=== PATIENT | female | born 1940 | race Caucasian/White ===

== ENCOUNTER 2024-01-20 09:00 | Outpatient (REF) | payer MEDICARE, SELFPAY ==
--- NOTE | ~2024-01-20 | XR_ITS ---
EXAMINATION: XR KNEE, LEFT CLINICAL INFORMATION: M25.562 - Pain in left knee COMPARISON: None available. TECHNIQUE: Three views of the left knee. FINDINGS: There is mild diffuse osteopenia. There is no fracture, dislocation, or suspicious focal bone lesion. There is a bone island in the proximal fibula. There is moderate to severe joint space loss lateral compartment, and moderate joint space loss medial and patellofemoral compartments, with moderate marginal osteophytic spurring. There is spurring of the tibial spines. Medial compartment joint space narrowing results in mild valgus angulation of the joint. There is a small suprapatellar joint effusion. There are vascular calcifications in the soft tissues. XR/XR knee LT 3V IMPRESSION: 1. Osteopenia. 2. No acute findings of the left knee. 3. Moderate to severe lateral compartment, and moderate medial and patellofemoral compartment osteoarthrosis. There is mild resultant valgus angulation of the joint. 4. Small joint effusion. Electronically signed by: Elvis Chowdhury MD 03/28/2024 01:10 PM DEYSI SAUER
== END 2024-01-20 09:01 | disposition home or self-care (01) ==
LOC: HO.HOSX 09:00
PROVIDERS: PCP Internal Medicine; Visit Provider Orthopaedic Surgery
DX: M25.562 Pain in left knee (principal); M17.12 Unilateral primary osteoarthritis, left knee
CPT/HCPCS: 73562; 99202

== ENCOUNTER → 2024-01-20 09:12 | Outpatient (BNV) | payer MEDICARE, SELFPAY | PROVIDERS: PCP Internal Medicine; Visit Provider Radiology Diagnostic Radiology | DX: M17.12 Unilateral primary osteoarthritis, left knee (principal) | CPT/HCPCS: 73562 ==

== ENCOUNTER 2024-01-20 09:53 | Outpatient (AMB) | payer MEDICARE, SELFPAY ==
--- NOTE | 2024-01-20 10:03 | A.OFFVIS_ITS ---
Vital Signs 01/20/24 10:08 Height 5 ft 5.5 in Weight 150 lb BMI 24.6 Intake Visit Reasons: [employer] - LT knee pain Intake Note: Leighann is a 83 year old female who presents with complaints of progressively worsening left knee pain. The patient describes her pain as sharp and severe in nature, 02/03. Her pain has gotten worse over the last few years in spite of continued non operative treatments. She has done physical therapy which aggravated her pain. She has failed the last 6 weeks of conservative treatment. She has tried Tylenol and anti-inflammatory medicines which gave her minimal relief. She has also had multiple injections given into her left knee including ?stem cell injections?. The most recent injection gave her minimal relief. The patient has difficulty walking even short distances because of her pain. At this point her left knee pain is interfering with her activities of daily living and her ability to sleep well through the night. Allergies No Known Allergies Allergy (Verified 01/20/24 10:09) Physical Exam Vital Signs: BMI result Body Mass Index 24.6 Const Other: Well-nourished well-developed very friendly female awake alert and oriented x3 in no acute distress Extrem Other: Bilateral lower extremity examination shows good capillary refill, no skin lesions noted, normal sensation light touch Left knee examination shows a minimal effusion, palpable crepitus with range motion, pain with range of motion, range of motion from -3 degrees to 115 degrees, no instability Results Reviewed Results Reviewed: X-rays of the patient's left knee show end-stage degenerative joint disease with grade 4 zdvo-pv-yles arthritis, subchondral sclerosis, osteophyte formation, no acute bony abnormalities Assessment & Plan Assessment & Plan (1) Arthritis of left knee: Code(s): M17.12 - Unilateral primary osteoarthritis, left knee Category: Medical Plan Ms. Smyth presents with progressively worsening left knee pain due to end-stage degenerative joint disease. I had a lengthy discussion with the patient regarding the treatment options. At this point she has failed continued non ope rative treatments. The risks and benefits of left total knee replacement surgery were discussed at length with the patient. The patient wishes to proceed with surgery. She will be scheduled for next available date. I will see her back 1 week prior to her surgery to answer any final questions that she might have. Feel free to call me at any time should questions regarding her orthopedic management arise. Thank you very much for asking me to see this very friendly patient. I spent 22 minutes in reviewing the patient's records and imaging studies, seeing the patient and documenting in the medical record. Orders: Orders XR knee LT 3V 01/20/24 M25.562 - Pain in left knee Coding Level of Care Code New Pt Level 3 (91730) Complex EM visit Add On G2211 Diagnoses Arthritis of left knee M17.12
[2024-01-20 10:08] VITALS: BMI 24.6
== END 2024-01-20 10:24 | disposition home or self-care (01) ==
LOC: HO.HOS 09:53
PROVIDERS: PCP Internal Medicine; Visit Provider Orthopaedic Surgery
DX: M17.12 Unilateral primary osteoarthritis, left knee (principal)
CPT/HCPCS: 99204; G2211

== ENCOUNTER → 2024-04-05 10:55 | Outpatient (BNVA) | payer MEDICARE, SELFPAY | PROVIDERS: PCP Internal Medicine | DX: Z01.818 Encounter for other preprocedural examination (principal) ==

== ENCOUNTER 2024-05-05 08:10 | Outpatient (AMB) | payer MEDICARE, SELFPAY ==
[2024-05-05 08:12] VITALS: BMI 24.6
--- NOTE | 2024-05-05 08:12 | MHC.OFFVIS ---
Vital Signs 05/05/24 08:12 Height 5 ft 5.5 in Weight 150 lb BMI 24.6 Intake Visit Reasons: Left knee pain Intake Note: Leighann is a 83 year old female who presents with complaints of progressively worsening left knee pain. The patient describes her pain as sharp and severe in nature, 02/03. Her pain has gotten worse over the last few years in spite of continued non operative treatments. She has done physical therapy which aggravated her pain. She has failed the last 6 weeks of conservative treatment. She has tried Tylenol and anti-inflammatory medicines which gave her minimal relief. She has also had multiple injections given into her left knee including ?stem cell injections?. The most recent injection gave her minimal relief. The patient has difficulty walking even short distances because of her pain. At this point her left knee pain is interfering with her activities of daily living and her ability to sleep well through the night. Allergies Influenza Virus Vaccines Allergy (Severe, Verified 05/05/24 08:12) severe flu symptoms Medication List - Last Reconciled 05/05/24 by Lawrence Menon MD cholecalciferol (vitamin D3) (Vitamin D3) 30 mcg PO QPM fish,bora,flax oils-om3,6,9no1 1,200 mg ([place] 3-6-9) 1 cap PO QPM glucosamine-chondroitin 250-200 mg (Osteo Bi-Flex) 2 tabs PO QAM Lactobacillus acidophilus (Acidophilus capsule) 20,000 mmu cells PO QAM magnesium oxide 400 mg PO QPM naproxen sodium (Aleve) 220 mg PO BID PRN omeprazole 20 mg PO QAM simvastatin 20 mg PO QPM tramadol 50 mg PO Q12H PRN vitamin B complex 1 tab PO DAILY walker Folding front wheeled walker [facility] Medical History (Updated 05/05/24 @ 07:20 by Lawrence Menon MD) Arthritis 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), 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) Diverticulosis Varicose vein of leg GERD (gastroesophageal reflux disease) Dyslipidemia Depression Surgical History (Updated 04/11/24 @ 09:48 by Suri Putnam RN) Hx of bilateral cataract extraction History of arthroplasty of right shoulder Hx of meniscectomy of right knee Hx of prior ablation treatment History of right salpingo-oophorectomy Social History (Updated 04/12/24 @ 10:21 by Suri Putnam RN) Are you a primary career development director to a significant other at home: No Do you presently have visiting nurse or other home services: No Comment: aware of trip hazard and will remove Patient Tobacco Use Status: Never used Tobacco Physical Exam Vital Signs: BMI result Body Mass Index 24.6 Const Other: Well-nourished well-developed very friendly female awake alert and oriented x3 in no acute distress Extrem Other: Bilateral lower extremity examination shows good capillary refill, no skin lesions noted, normal sensation light touch Left knee examination shows a minimal effusion, palpable crepitus with range of motion, pain with range of motion, range of motion from -3 degrees to 115 degrees, no instability Results Reviewed Results Reviewed: X-rays of the patient's left knee show end-stage degenerative joint disease with grade 4 vkiz-al-zlsv arthritis, subchondral sclerosis, osteophyte formation, no acute bony abnormalities Assessment & Plan Assessment & Plan (1) Left knee pain: Code(s): M25.562 - Pain in left knee Category: Medical (2) Arthritis of left knee: Code(s): M17.12 - Unilateral primary osteoarthritis, left knee Category: Medical Plan Ms. Smyth presents with progressively worsening left knee pain due to end-stage degenerative joint disease. I had a lengthy discussion with the patient regarding the treatment options. At this point she has failed continued non operative treatments. The risks and benefits of left total knee replacement surgery were discussed at length with the patient. The patient wishes to proceed with surgery. director agricultural services will be consulted following her surgery for home physical therapy and nursing. The patient will follow-up as instructed. Feel free to call me at any time should questions regarding her orthopedic management arise. I spent 20 minutes in reviewing the patient's records and imaging studies, seeing the patient and documenting in the medical record. Orders: Orders Type and Screen Today M17.12 - Unilateral primary osteoarthritis, left knee, Z01.818 - Encounter for other preprocedural examination Coding Level of Care Code Est Pt Level 3 (83141) Complex EM visit Add On G2211 Diagnoses Left knee pain M25.562 Arthritis of left knee M17.12
--- OUTSIDE RECORDS SUMMARY | 2024-05-05 08:15 | XMS_ITS | Continuity of Care Document ---
Author Organization [facility] Address [address] [place] [address]- Care Team Providers Care Women'S Garment Fitter Name Role Phone Zack GILLESPIE, Wendi Gaines Primary Care Physician Encounter [facility] [place] [facility] Date(s): 03/14/24 - 04/13/24 [facility] [address] [place] [address]- Attending Physician: Rick Weston Admitting Physician: Rick Weston Referring Physician: AdmtrRick Encounter Type: Triage Allergies, Adverse Reactions, Alerts No Known Allergies Medications Acidophilus Probiotic Blend oral capsule By Mouth, Daily, 0 Refills, Maintenance, 09/10/20 10:57:00 AM EDT, Partial fill upon patient requestif the prescription is for a schedule II opioid drug. Start Date: 09/10/20 Status: Ordered Repeat number: 1 Aleve Back and Muscle Pain 220 mg oral tablet 1 tablet = 220 mg, By Mouth, Every 12 hours, PRN as needed for pain, # 40 tablet, 0 Refills, Maintenance, 03/14/24 5:08:00 PM EST, Tablet, Partial fill upon patient request if the prescription is fora schedule II opioid drug. Start Date: 03/14/24 Status: Ordered Quantity: 40.0 Unit: tablet Repeat number: 1 Compression Stockings See Instructions, # 2 each, Refills 3, Tot. Refills 3, Maintenance, surgical, panty hose length 20-30 mm Hg, 10/25/20 1:59:00 PM EDT, Supply Start Date: 10/25/20 Status: Ordered Quantity: 2.0 Unit: each Repeat number: 4 Indication: Venous insufficiency (chronic) (peripheral) Compression Stockings See Instructions, # 2 pair, Refills 3, Tot. Refills 3, Maintenance, surgical, knee length 20-30 mm Hg, 03/22/18 5:24:48 PM EST, Compound Start Date: 03/22/18 Status: Ordered Quantity: 2.0 Unit: pair Repeat number: 4 Multivitamin Tablet By Mouth, Daily, 0 Refills, Maintenance, 09/09/11 1:04:30 PM EDT Start Date: 09/09/11 Status: Ordered Repeat number: 1 Omeprazole = 20 mg, By Mouth, Daily, 0 Refills, Maintenance, 03/22/18 4:50:47 PM EST Start Date: 03/22/18 Status: Ordered Repeat number: 1 Osteo Bi-Flex 0 Refills, Maintenance, 03/14/24 5:09:00 PM EST, Partial fill upon patient request if the prescription is for a schedule II opioid drug. Start Date: 03/14/24 Status: Ordered Repeat number: 1 Simvastatin = 20 mg, By Mouth, Daily at bedtime, 0 Refills, Maintenance, 09/09/11 1:03:56 PM EDT Start Date: 09/09/11 Status: Ordered Repeat number: 1 Vit B Complex/Vit C Capsule By Mouth, Daily, Refills 0, Maintenance, 09/10/20 10:57:00 AM EDT, Partial fill upon patient requestif the prescription is for a schedule II opioid drug. Start Date: 09/10/20 Status: Ordered Repeat number: 1 Vitamin C 500 mg oral tablet 1 tablet = 500 mg, By Mouth, Daily, # 30 tablet, 0 Refills, Maintenance, 09/10/20 10:57:00 AM EDT, Tablet, Partial fill upon patient request if the prescription is for a schedule II opioid drug. Start Date: 09/10/20 Status: Ordered Quantity: 30.0 Unit: tablet Repeat number: 1 Problem List Condition Confirmation Course Effective Dates Status Health St atus Informant Varicose vein Confirmed Active Social History Social History Type Response Smoking Status Never (less than 100 in lifetime) entered on: 03/22/18 Sex Sex Representation Female (finding) Patient Care team information Care Team Personnel Name: Wendi Dixon MD Position: [facility] Outreach Member Role: PCP Address: [address] [place] [address] Telecom: Care Team Related Persons Name: ABIMAEL HANNON Insurance Providers Guarantor name: SHIREEN [facility] Information #: 1 Payer: [facility] [employer] Member Number: NA Policy Number: NA Group Number: NA
--- OUTSIDE RECORDS SUMMARY | 2024-05-05 08:15 | XMS_ITS | Continuity of Care Document ---
Author Organization [facility] Address [address] [place] [address]- Care Team Providers Care Chemical Recovery Operator Name Role Phone Zack GILLESPIE, Wendi Gaines Primary Care Physician [id number] [address] [place], [place] [address] Attending Physician: Mabel Puente NP Admitting Physician: Mabel Puente NP Referring Physician: Wendi Dixon MD Encounter Type: Pre Office Visit Allergies, Adverse Reactions, Alerts No Known Allergies [...] Team Personnel Name: Wendi Dixon MD Position: S Outreach Member Role: PCP Address: [address] [place] [address] Telecom: Care Team Related Persons Name: ABIMAEL HANNON Insurance Providers Guarantor name: SHIREEN [facility] [employer] [facility] Information #: 1 Payer: [facility] Member Number: [id number] Policy Number: NA Group Number: [id number] Health Plan Information #: 2 Payer: [facility] [employer] Member Number: [id number] Policy Number: NA Group Number: [id number]
== END 2024-05-05 08:46 | disposition home or self-care (01) ==
PROVIDERS: PCP Internal Medicine; Visit Provider Orthopaedic Surgery
DX: M25.562 Pain in left knee (principal); M17.12 Unilateral primary osteoarthritis, left knee
CPT/HCPCS: 99213; G2211

== ENCOUNTER → 2024-05-05 08:10 | Outpatient (BNVA) | payer MEDICARE, SELFPAY | PROVIDERS: PCP Internal Medicine; Visit Provider Orthopaedic Surgery | DX: Z01.818 Encounter for other preprocedural examination (principal); M17.12 Unilateral primary osteoarthritis, left knee | CPT/HCPCS: 99212 ==

== ENCOUNTER 2024-05-09 07:21 | Day surgery (SDC) | payer MEDICARE, BC, SELFPAY ==
[2024-04-12 10:27] VITALS: BP 145/78; RESP 18; O2SAT 97; BMI 27.9
--- NOTE | 2024-04-12 10:49 | HO.ANESPROP2 ---
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) Diverticulosis Varicose vein of leg GERD (gastroesophageal reflux disease) Dyslipidemia Depression Surgical History Surgical History Hx of bilateral cataract extraction History of arthroplasty of right shoulder Hx of meniscectomy of right knee Hx of prior ablation treatment History of right salpingo-oophorectomy Social History Social History Are you a primary health care manager to a significant other at home: No Do you presently have visiting nurse or other home services: No Comment: aware of trip hazard and will remove Patient Tobacco Use Status: Never used Tobacco Use of substances other than those prescribed or required for medical reasons: No Have you been hit, kicked, punched, or otherwise hurt by someone within the past year? If so, by whom?: No Spiritual Healthcare Practices: none Congregation Healthcare Practices: none Cultural Healthcare Practices: none Are you DNR?: No Advance Directives Information Provided: Yes (as above noted) Advance Directives on File: No Recently lost weight without trying: No Eating poorly because of decreased appetite: No Nutrition Risks: Surgical patient >75years FDLMP: n/a Poor oral hygiene: No Meds Allergies Allergy/AdvReac Type Severity Reaction Status Date / Time Influenza Virus Vaccines Allergy Severe severe flu Verified 05/09/24 08:04 symptoms Home Medications ?Medication ?Instructions ?Recorded ?Confirmed ?Last Taken ?Type omeprazole 20 mg capsule,delayed 20 mg PO QAM 04/05/24 05/05/24 05/09/24 History release simvastatin 20 mg tablet 20 mg PO QPM 04/05/24 05/05/24 Unknown History Lactobacillus acidophilus 20,000 mmu cells PO QAM 04/08/24 05/05/24 Unknown History (Acidophilus capsule) glucosamine-chondroitin 250 mg-200 2 tab PO QAM 04/08/24 05/05/24 Unknown History mg tablet (Osteo Bi-Flex) naproxen sodium 220 mg tablet 220 mg PO BID PRN Pain 04/08/24 05/05/24 Unknown History (Aleve) vitamin B complex 1 tab PO DAILY 04/08/24 05/05/24 Unknown History cholecalciferol (vitamin D3) 10 30 mcg PO QPM 04/12/24 05/05/24 Unknown History mcg (400 unit) capsule (Vitamin D3) fish, borage, flaxseed oils-omega 1 cap PO QPM 04/12/24 05/05/24 Unknown History 3,6,9 comb no.1 1,200 mg capsule (Bapchule 3-6-9) magnesium oxide 400 mg PO QPM 04/12/24 05/05/24 Unknown History Exam Height,Weight and Vital Signs: Height 5 ft 5.5 in Weight 77.111 kg Last Vital Signs Resp 18 04/12/24 10:27 BP 145/78 H 04/12/24 10:27 Pulse Ox 97 04/12/24 10:27 O2 Del Method Room Air 04/12/24 10:27 Pertinent Lab Results Pertinent Lab Results: Lab Results Test Name Test Result Date/Time WBC10.0 k/mm303/14/2024 10:40 EST RBC3.90 m/mm303/14/2024 10:40 EST Hgb11.8 Gm/dL03/14/2024 10:40 EST Hct36.8 %03/14/2024 10:40 EST MCV94.4 qeydigvscjz56/18/2024 10:40 EST MCH30.3 pg03/14/2024 10:40 EST MCHC32.1 Gm/dL03/14/2024 10:40 EST Platelet [place]295 k/mm303/14/2024 10:40 EST RDW-SD46.3 /18/2024 10:40 EST MPV9.5 hwkmnwubrxt05/18/2024 10:40 EST Nucleated RBC (Automated)0.0 #/100 WBC'03/14/2024 10:40 EST Abs. NRBC0.0 k/mm311 10:40 EST Abs. Neut6.8 k/mm303/14/2024 10:40 EST Abs. Lymph1.7 k/mm303/14/2024 10:40 EST Abs. Mono1.0 k/mm311 10:40 EST Abs. Eo0.3 k/mm303/14/2024 10:40 EST Abs. Baso0.1 k/mm303/14/2024 10:40 EST Neut %68.3 %03/14/2024 10:40 EST Lymph %17.2 %03/14/2024 10:40 EST [place] %9.7 %03/14/2024 10:40 EST Eos %3.4 %03/14/2024 10:40 EST Baso %0.8 %03/14/2024 10:40 EST Imm Gran0.6 %03/14/2024 10:40 EST Abs. Imm Gran0.1 k/mm303/14/2024 10:40 EST Mgavzb002 mmol/L105/14/2023 10:40 EST Potassium4.3 mmol/L105/14/2023 10:40 EST Mqvisnjr351 mmol/L105/14/2023 10:40 EST Bicarbonate Level21 mmol/L105/14/2023 10:40 EST Anion Zxp901305/14/2023 10:40 EST Glucose Level99 mg/dL03/14/2024 10:40 EST Hemoglobin A1C (Monitoring)5.7 %03/14/2024 10:40 EST BUN22 mg/dL03/14/2024 10:40 EST Creatinine-Blood0.61 mg/dL03/14/2024 10:40 EST Estimated GFR Gqxmkwoeva77 ML/MIN/1.73 M203/14/2024 10:40 EST Calcium9.2 mg/dL03/14/2024 10:40 EST Narrative Narrative: EKG 02/2024 Diagnostic ResultsVentricular Rate: 72 ?BPM Atrial Rate: 72 ?BPM P-R Interval: 158 ?ms QRS Duration: 116 ?ms Q-T Interval: 408 ?ms QTC Calculation(Bazett): 446 ?ms P [place]: 29 ?degrees R [place]: 26 ?degrees T [place]: 38 ?degrees Normal sinus rhythm Incomplete right bundle branch block Borderline ECG No previous ECGs available Confirmed by MARCUS DUFFY MD ([id number]) on 03/14/2024 11:09:12 AM?[1] Airway Mallampati Class: II TM Dist: >3cm Neck ROM: Full Loose/Missing/Broken Teeth: Yes (Right upper broken, missing) Heart: RRR Lungs: CTAB Assessment and Plan Assessment Anesthesia Assessment: Anesthesia Plan Discussed and PAT Visit Documented by User: Lexus Cooper MD 05/09/24 09:35 [facility] Past Medical History Medical History Arthritis 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), 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) Diverticulosis Varicose vein of leg GERD (gastroesophageal reflux disease) Dyslipidemia Depression Family History Family history of problems with anesthesia: No Surgical History Surgical History Hx of bilateral cataract extraction History of arthroplasty of right shoulder Hx of meniscectomy of right knee Hx of prior ablation treatment History of right salpingo-oophorectomy History of Problems with Anesthesia: No Social History Social History Are you a primary health care manager to a significant other at home: No Do you presently have visiting nurse or other home services: No Comment: aware of trip hazard and will remove Patient Tobacco Use Status: Never used Tobacco Use of substances other than those prescribed or required for medical reasons: No Have you been hit, kicked, punched, or otherwise hurt by someone within the past year? If so, by whom?: No Spiritual Healthcare Practices: none Congregation Healthcare Practices: none Cultural Healthcare Practices: none Are you DNR?: No Advance Directives Information Provided: Yes (as above noted) Advance Directives on File: No Recently lost weight without trying: No Eating poorly because of decreased appetite: No Nutrition Risks: Surgical patient >75years FDLMP: n/a Poor oral hygiene: No Meds Allergies Allergy/AdvReac Type Severity Reaction Status Date / Time Influenza Virus Vaccines Allergy Severe severe flu Verified 05/09/24 08:04 symptoms Home Medications ?Medication ?Instructions ?Recorded ?Confirmed ?Last Taken ?Type omeprazole 20 mg capsule,delayed 20 mg PO QAM 04/05/24 05/05/24 05/09/24 History release simvastatin 20 mg tablet 20 mg PO QPM 04/05/24 05/05/24 Unknown History Lactobacillus acidophilus 20,000 mmu cells PO QAM 04/08/24 05/05/24 Unknown History (Acidophilus capsule) glucosamine-chondroitin 250 mg-200 2 tab PO QAM 04/08/24 05/05/24 Unknown History mg tablet (Osteo Bi-Flex) naproxen sodium 220 mg tablet 220 mg PO BID PRN Pain 04/08/24 05/05/24 Unknown History (Aleve) vitamin B complex 1 tab PO DAILY 04/08/24 05/05/24 Unknown History cholecalciferol (vitamin D3) 10 30 mcg PO QPM 04/12/24 05/05/24 Unknown History mcg (400 unit) capsule (Vitamin D3) fish, borage, flaxseed oils-omega 1 cap PO QPM 04/12/24 05/05/24 Unknown History 3,6,9 comb no.1 1,200 mg capsule (Bapchule 3-6-9) magnesium oxide 400 mg PO QPM 04/12/24 05/05/24 Unknown History Assessment and Plan Final Anesthetic Review Family History of Problems with Anesthesia: No History of Problems with Anesthesia: No NPO: Yes ASA Class: III Final Preanesthetic Review: No Changes in Pt Med Stat, Meds/Allgs Chart Reviewed, Consent Obtained/Reviewed and Anes Risks/Benef Reviewed Patient Risk: Intermediate Procedure Risk: Intermediate Anesthetic Plan Anesthetic Plan: MAC:, Spinal, Neuraxial Block: and Regional Block Disposition: Standard PACU
[2024-04-12 13:38] LABS: MRSA Nasal PCR NEGATIVE (Negative); SA Nasal PCR NEGATIVE (Negative)
[2024-05-09] VITALS (15 sets, daily range): BP systolic 99–153; BP diastolic 41–96; PULSE 72–117; RESP 16–18; TEMP 36.2–36.7; O2SAT 95–97; BMI 27.9
[2024-05-09] MEDS: Lactated Ringers 1,000 ML 100 ML IVCONT ×2 (08:52→17:47)
--- NOTE | 2024-05-09 14:43 | P.BOP_ITS ---
Brief Operative Note Date of Service: 05/09/24 Pre-op diagnosis: Left knee degenerative joint disease Post-op diagnosis: same Procedure: Left total knee arthroplasty Implants: Alder Triathlon cemented posterior stabilized total knee arthroplasty with a femoral component size 4 left, universal tibial component size 4, tibial stem size 12 mm in diameter by 50 mm in length, polyethylene liner size 4 with 9 mm of thickness, a symmetric patellar component size 29 with 8 mm of thickness Surgeon: Lawrence Menon MD Anesthesia: spinal Was an Catheterization Laboratory Technician used for this Procedure?: No Catheterization Laboratory Technician: Flavio Young Estimated blood loss (mL): 200 Pathology: other (Bony fragments from the left femur, tibia and patella) Condition: stable Disposition: PACU
--- NOTE | 2024-05-09 14:45 | P.OP_ITS ---
Operative Note Operative Note Date of Service: 05/09/24 Narrative: After the patient was identified as Leighann Smyth and her left knee was initialed by myself the patient was brought to the holding area where a left leg nerve block was performed by the anesthesiologist in routine fashion. The patient was then brought to the operating room where conscious sedation and spinal anesthesia were performed by the anesthesiologist in routine fashion. The patient was given 2 g of IV Ancef preoperatively for infection prophylaxis. The patient's left lower extremity was prepped and draped in sterile fashion. A formal time-out was completed. The patient's left knee was placed onto a small bump to produce 30? of knee flexion during exposure. A #10 scalpel blade was used to make a midline incision extending 1 handbreadth proximal and distal to the patella. A second #10 scalpel blade was used to dissect the subcutaneous tissues down to the extensor mechanism. The subcutaneous flaps were maintained as thick as possible. A medial parapatellar arthrotomy was then performed using a #10 scalpel blade. The arthrotomy was begun just medial to the patellar tendon. The arthrotomy was continued 1 cm medial to the patella and then 5 mm into the medial aspect of the quadriceps tendon. The infrapatellar fat pad was partially excised to help with exposure. The soft tissue retinaculum was raised one-half of the way around the medial aspect of the proximal tibia. The patella was everted and the knee was flexed to 90?. There was no injury to the patellar tendon or its insertion onto the tibial tubercle. A drill bit was introduced into the distal aspect of the femur with a starting point 1 cm anterior to the origin of the posterior cruciate ligament. The intramedullary alignment katherine was put into place. The distal alignment guide was set for a 5 degree valgus cut. The distal cutting block was put into place and was held with 4 pins. The intramedullary alignment katherine was removed. Soft tissues were retracted in the distal femoral cut was made using a sagittal saw. The distal aspect of the femur measured to be a size 4 left component. Two drill holes were placed into the distal aspect of the femur marking 3? of external rotation. The distal cutting block was impacted into place and was held with 2 pins. Soft tissues were retracted and the 4 distal femoral cuts were made using a sagittal saw. Final notching and drilling of the distal aspect of the femur were performed in routine fashion. The trial femoral component was impacted into place. The knee was taken through a full range of motion. The patella tracked well. The patella was everted and the knee was flexed to 90?. The trial component was removed and our attention was directed to the proximal tibia. The medial and lateral menisci were removed using a #10 scalpel blade. A small rim of the med ial meniscus was left intact to help prevent injury to the medial collateral ligament. A drill bit was then introduced into the proximal tibia with a starting point midway from medial to lateral and one-third of the way posteriorly. The intramedullary alignment katherine was put into place. The proximal tibial cutting guide was placed over the alignment katherine in line with the 2nd toe. The guide was held in place using 3 pins. The intramedullary alignment katherine was removed. Soft tissues were retracted and the proximal tibial cut was made using a sagittal saw. Inspection of the proximal tibia showed a bony cyst measuring approximately 5 mm x 5 mm x 10 mm along the medial tibial plateau. Because of the presence of the cyst the decision was made to use a tibial stem to help prevent loosening of the tibial component in the future. The proximal tibia measured to be a size 4 component. The tibial tray was put into place with a 9 mm liner. The femoral component was impacted into place. The knee was taken through a full range of motion. There was full flexion and full extension. There was no instability with varus or valgus stress testing with the knee in flexion or extension. The patella tracked well with no medially directed force. The rotation of the tibial tray was marked using electrocautery with the knee in extension. The patella was everted and the knee was flexed to 90?. All trial components were removed. The tibial tray was placed onto the proximal tibia in line with the electrocautery maria alejandra. The tray was held in place using 3 pins. Final broaching and drilling of the proximal tibia were performed in routine fashion. The trial liner and trial femoral component were put into place. The knee was brought into extension and our attention was directed to the patella. The patella measured 25 mm in thickness. The patellar resection guide was set for a 10 mm resection. Soft tissues were retracted and the patella cut was made using a sagittal saw. The remaining patella measured 15 mm in thickness. The undersurface of the patella was measured to be a size 29 symmetric component. Three drill holes were placed into the undersurface of the patella in routine fashion. The trial component was put into place. The knee was taken through a full range of motion. The patella tracked well. The patella was everted and the knee was flexed to 90?. All trial components were removed. The knee was once again brought into extension and placed onto a small bump. The knee joint was irrigated with copious amounts of normal saline solution via pulse lavage while the cement was mixed. The patella was everted and the knee was flexed to 90?. A small amount of cement was placed along the posterior aspects of the tibial and femoral components. Cement was then pressurized into the proximal tibia. The tibial component was impacted into place. Any excess cement was removed. The polyethylene liner was then impacted into place. Cement was then pressurized into the distal aspect of the femur. A small amount of cement was placed into the intramedullary canal to help reduce bleeding. The femoral component was impacted into place. Any excess cement was removed. The knee was then brought into extension. Cement was pressurized into the undersurface of the patella. The patellar component was put into place and was held with a patella clamp. Any excess cement was removed. Once the cement had hardened the patellar clamp was removed. The knee was taken through a full range of motion. There was full flexion and extension. There was no instabili ty with varus or valgus stress testing with the knee in flexion or extension. The patella tracked well with no medially directed force. The knee joint was irrigated with copious amounts of normal saline solution via pulse lavage. Any significant bleeding vessels were coagulated. The patient's left knee was placed onto a small bump. The arthrotomy was closed with #2 Ethibond [id number] interrupted suture as well as #1 Vicryl [id number] interrupted suture. The wound was once again irrigated. The subcutaneous tissues were closed with 0 Vicryl and 2-0 Vicryl interrupted sutures. The skin was closed with skin juan. Dry sterile dressing and Mike bandages were placed over the patient's left knee. The patient was awake and alert. The patient was transferred to the recovery room in stable condition.
[2024-05-09] MEDS: HYDROmorphone HCl 0.5 MG/0.5 ML SYRINGE 0.25 MG IVPUSH (18:02)
--- NOTE | 2024-05-09 19:03 | PHA.MEDREC ---
Addendum entered by Solomon Sears 05/09/24 19:56: reviewed Original Note: Pharmacy Consult ? Medication Reconciliation Pharmacy has completed the medication reconciliation. Spoke with patient and she confirmed [facility]. Patient confirmed she is not taking the Acidophilus tablet at the moment and states her Dr stopped her on that 10 days ago due to the procedure she was getting today. She confirmed she is taking the Omeprazole 20mg tab once daily and if absolutely needed she will take a second tablet as needed for acid reflux but states she does not do that very often. She confirmed her Dr stopped her medications except for the Simvastatin 20mg, Omeprazole 20mg, Vitamin D3 and [place] fish oil cap 9 days ago and confirmed she took the Omeprazole 20mg tab this morning and the Simvastatin 20mg, Vitamin D3 and [place] Fish Oil Cap yesterday.
[2024-05-09] MEDS: Acetaminophen 325 MG TABLET 650 MG PO (19:10)
[2024-05-09] MEDS: oxyCODONE HCl Immed Release 5 MG TABLET 10 MG PO ×2 (19:10→23:20)
[2024-05-09] MEDS: Celecoxib 200 MG CAPSULE PO (19:11)
[2024-05-09] MEDS: oxyCODONE HCl ER 10 MG TAB.ER.12H PO (19:11)
[2024-05-09] MEDS: Docusate Sodium 100 MG CAPSULE PO (19:12)
[2024-05-09] MEDS: HYDROmorphone HCl 0.5 MG/0.5 ML SYRINGE IVPUSH (20:51)
--- NOTE | 2024-05-09 21:15 | P.CONHOSP_ITS ---
History of Present Illness Data of Consult Service Date: 05/09/24 Requesting physician: Lawrence Menon Primary Care Provider: Wendi Dixon MD HPI Reason for consult: medical consult Patient is an 83-year-old female with a past medical history significant for osteoarthritis, hyperlipidemia and GERD, status post left TKA today. Patient reports that she is still having significant pain even with her scheduled medications. She is using ice packs and is having a hard time trying to sleep due to the pain. She denies any chronic pain medications aside from tramadol as needed. She denies any chest pain, shortness of breath, nausea or vomiting. She has been able to urinate. No numbness or tingling in the lower extremities. No current concerns aside from her significant pain in the left knee. Review of Systems Constitutional: Constitutional: Denies chills, Denies fatigue, Denies fever(s) and Denies headache(s) Eyes: Eyes: Denies change in vision ENT: Denies headache(s), Denies nasal congestion, Denies nasal discharge and Denies sore throat Cardiovascular: Cardiovascular: Denies chest pain, Denies rapid heart rate and Denies dyspnea Respiratory: Respiratory: Denies chest congestion, Denies cough, Denies dyspnea and Denies wheezing Gastrointestinal: Gastrointestinal: Denies diarrhea, Denies nausea and Denies vomiting Genitourinary: Genitourinary: Denies dysuria and Denies urinary urgency Musculoskeletal: Musculoskeletal: Reports as per HPI Integumentary/Breasts: Skin/Breast: Denies rash Neurologic: Denies confusion and Denies headache(s) Psychiatric: Psychiatric: Denies confusion Endocrine: Endocrine: Denies fatigue Allergic/Immunologic: Allergic/Immunologic: Denies wheezing [facility] Medical History Arthritis 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), 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) Diverticulosis Varicose vein of leg GERD (gastroesophageal reflux disease) Dyslipidemia Depression Surgical History Hx of bilateral cataract extraction History of arthroplasty of right shoulder Hx of meniscectomy of right knee Hx of prior ablation treatment History of right salpingo-oophorectomy Social History Household Members: None Housing: Homeless Are you a primary administrator health care facility to a significant other at home: No Do you presently have visiting nurse or other home services: No Comment: aware of trip hazard and will remove Patient Tobacco Use Status: Never used Tobacco Use of substances other than those prescribed or required for medical reasons: No Have you been hit, kicked, punched, or otherwise hurt by someone within the past year? If so, by whom?: No Do you feel safe in your current relationship?: No Current Relationship Is there a partner from a previous relationship who is making you feel unsafe now?: No Are you made to feel afraid or neglected: No Spiritual Healthcare Practices: none Anglican Healthcare Practices: none Cultural Healthcare Practices: none Are you DNR?: No Advance Directives Information Provided: Yes (as above noted) Advance Directives on File: No Do you have a plan to hurt others: No Plan Recently lost weight without trying: No Eating poorly because of decreased appetite: No Nutrition Risks: No Nutritional Risk Patient : No FDLMP: n/a : No Poor oral hygiene: No Narrative: No smoking or drug use, occasional alcohol. Meds Allergies Allergy/AdvReac Type Severity Reaction Status Date / Time Influenza Virus Vaccines Allergy Severe severe flu Verified 05/09/24 08:04 symptoms Active Medications: Current Medications Acetaminophen (Acetaminophen 325 Mg Tablet) 650 mg PO Q6H PRN PRN Reason: Pain, Mild 1-3,fever,headache Last Admin: 05/09/24 19:10 Dose: 650 mg Aspirin (Aspirin 325 Mg Tablet) 325 mg PO BID [facility] Atorvastatin Calcium (Atorvastatin Calcium 10 Mg Tablet) 10 mg PO DAILY [facility] Celecoxib (Celecoxib 200 Mg Capsule) 200 mg PO BID [facility] Last Admin: 05/09/24 19:11 Dose: 200 mg Docusate Sodium (Docusate Sodium 100 Mg Capsule) 100 mg PO BID [facility] Last Admin: 05/09/24 19:12 Dose: 100 mg Hydromorphone HCl (Hydromorphone Hcl 0.5 Mg/0.5 Ml Syringe) 0.5 mg IVPUSH Q4H PRN; Protocol PRN Reason: Pain, Severe (Pain Scale 7-10) Last Admin: 05/09/24 20:51 Dose: 0.5 mg Lactated Ringer's (Lr) 1,000 mls @ 100 mls/hr IVCONT .Q10H [facility] Stop: 05/10/24 15:00 Last Admin: 05/09/24 17:47 Dose: 100 mls/hr Cefazolin Sodium/Dextrose (Ancef) 2 gm in 50 mls @ 100 mls/hr IV Q8H [facility] Stop: 05/10/24 12:00 Naloxone HCl (Naloxone Hcl 0.4 Mg/Ml Vial) 0.04 mg IVPUSH Q5M PRN PRN Reason: Excessive sedation or RR < 8 Ondansetron HCl (Ondansetron Hcl 4 Mg/2 Ml Vial) 4 mg IVPUSH Q8H PRN PRN Reason: Nausea and Vomiting Oxycodone HCl (Oxycodone Hcl Immed Release 5 Mg Tablet) 5 mg PO Q4H PRN PRN Reason: Pain, Moderate(Pain Scale 4-6) Oxycodone HCl (Oxycodone Hcl Er 10 Mg Tab.Er.12h) 10 mg PO BID [facility] Last Admin: 05/09/24 19:11 Dose: 10 mg Oxycodone HCl (Oxycodone Hcl Immed Release 5 Mg Tablet) 10 mg PO Q4H PRN PRN Reason: Pain, Moderate(Pain Scale 4-6) Last Admin: 05/09/24 19:10 Dose: 10 mg Sodium Chloride (0.9 % Sodium Chloride Flush 3 Ml Syringe) [facility] Last Admin: 05/09/24 18:11 Dose: Not Given Home Medications ?Medication ?Instructions ?Recorded ?Confirmed ?Last Taken ?Type omeprazole 20 mg capsule,delayed 20 mg PO DAILY@0630 04/05/24 05/09/24 04/30/24 History release simvastatin 20 mg tablet 20 mg PO BEDTIME 04/05/24 05/09/24 05/08/24 History glucosamine-chondroitin 250 mg-200 2 tab PO DAILY 04/08/24 05/09/24 04/30/24 History mg tablet (Osteo Bi-Flex) cholecalciferol (vitamin D3) 10 30 mcg PO BEDTIME 04/12/24 05/09/24 05/08/24 History mcg (400 unit) capsule (Vitamin D3) fish, borage, flaxseed oils-omega 1 cap PO BEDTIME 12/05/09/24 05/08/24 History 3,6,9 comb no.1 1,200 mg capsule ([place]amond 3-6-9) magnesium oxide 400 mg PO BEDTIME 04/12/24 05/09/24 04/30/24 History omeprazole 20 mg capsule,delayed 20 mg PO DAILY@0500 PRN Acid Reflux 05/09/24 05/09/24 Unknown History release Physical Exam Vital Signs and Narrative: Vital Signs: Last Vital Signs Temp 97.9 F 05/09/24 19:34 Pulse 113 H 05/09/24 19:34 Resp 18 05/09/24 19:34 BP 143/87 H 05/09/24 19:34 Pulse Ox 95 05/09/24 19:34 O2 Del Method Room Air 05/09/24 19:34 BMI result Body Mass Index 27.9 General: AOx3, appears uncomfortable Resp: CTA bilaterally CVS: S1, S2, RRR GI: +BS, NT, no distention Skin: Warm, dry Neuro: Cranial nerves II-XII grossly intact bilaterally. Motor grossly intact bilaterally Extremities: Large Mike bandage around the left knee. Capillary refill normal bilaterally. Sensation intact bilateral lower extremities. Psych: Appropriate affect Const: General: No confusion Orientation/consciousness: No confusion Neuro: General: No confusion Assessment and Plan (1) Status post total left knee replacement: Status: Acute Plan Patient is an 83-year-old female with a past medical history significant for osteoarthritis, hyperlipidemia and GERD, status post left TKA today. BP slighlty elevated, no hx of HTN. s/p L TKA - plan per surgery - increased Dilaudid to 0.5mg due to pt's significant pain HLD - continue statin GERD - continue PPI elevated BPs - no hx HTN - pain likely contributory and IVF - continue to monitor BPs Thank you for allowing me to participate in the pt's care. Signing off for now. Please re-consult the medical team if any questions or concerns.
[2024-05-09] MEDS: ceFAZolin Sodium/Dextrose,Iso 2 GM/50 ML PIGGYBACK IV (21:24)
[2024-05-10] MEDS: HYDROmorphone HCl 0.5 MG/0.5 ML SYRINGE IVPUSH ×3 (01:12→10:48)
[2024-05-10 03:30] VITALS: BP 126/86; PULSE 112; RESP 17; TEMP 36.3; O2SAT 94
[2024-05-10] MEDS: oxyCODONE HCl Immed Release 5 MG TABLET 10 MG PO ×3 (03:31→13:01)
[2024-05-10] MEDS: Acetaminophen 325 MG TABLET 650 MG PO ×2 (03:31→13:01)
[2024-05-10] MEDS: Lactated Ringers 1,000 ML 100 ML IVCONT (03:34)
[2024-05-10] MEDS: ceFAZolin Sodium/Dextrose,Iso 2 GM/50 ML PIGGYBACK IV (05:28)
[2024-05-10 06:18] LABS: MANUAL DIFF FLAG NO
[2024-05-10 06:24] LABS: Basophils Percent Auto 0.2 % (0-2); Hematocrit 31.6 % (37.0-47.0); Hemoglobin 10.1 g/dl (12.0-16.0); Imm Gran Abs Auto 0.09 X10*3/uL (0.00-0.03); Imm Gran Pct Auto 0.5 % (0.0-0.4); Lymphocytes Absolute Auto 1.4 X10*3/uL (1.2-4.9); Lymphocytes Percent Auto 8.2 % (20-40); Mean Corpuscular Hemoglobin 29.7 pg (27.0-33.0); Mean Corpuscular Volume 92.9 fL (80.0-98.0); Mean Platelet Volume 9.1 fL (9.4-12.3); Monocytes Absolute Auto 1.2 X10*3/uL (0.1-1.2); Monocytes Percent Auto 7.2 % (2-11); Neutrophils Absolute Auto 14.1 x10*3/uL (2.0-8.3); Neutrophils Percent Auto 83.9 % (45-73); Platelet Count 271 X10*3/uL (160-400); Red Cell Distribution Width 13.2 % (11.0-16.0); White Blood Count 16.8 X10*3/uL (4.8-10.8)
[2024-05-10 06:36] LABS: Anion Gap 10 (12-20); Blood Urea Nitrogen 22 mg/dL (9-16); Calcium 8.9 mg/dL (8.4-10.2); Carbon Dioxide 24 mmol/L (22-29); Chloride 106 mmol/L (96-108); Creatinine Clr Calc Pharmacy 58.1; Estimated Glomerular Filt Rate > 60; Glucose Fasting 131 mg/dL (60-99); Potassium 4.5 mmol/L (3.3-5.1); Sodium 135 mmol/L (135-145)
--- NOTE | 2024-05-10 07:37 | PM.PNORT ---
Subjective Subjective Date of Service: 05/10/24 Interval history: Postop day 1 status post left TKA with Dr. Menon No overnight events Resting comfortably in bed Has not been out of bed to work with therapy Denies shortness of breath chest pain palpitations Physical Exam Vital Signs: Vital Signs: Last Vital Signs Temp 97.3 F 05/10/24 03:30 Pulse 112 H 05/10/24 03:30 Resp 17 05/10/24 03:30 BP 126/86 05/10/24 03:30 Pulse Ox 94 05/10/24 03:30 O2 Del Method Room Air 05/10/24 03:30 BMI result Body Mass Index 27.9 Const: General: cooperative, healthy appearing and no acute distress Resp: Effort & Inspection: normal respiratory effort and able to speak in complete sentences Cardio: Rate: regular rate Peripheral pulses: Peripheral pulses 2+ throughout GI: Palpation (GI): Soft to palpation Skin: General skin exam: no rashes or lesions noted Extrem: Other: bandage clean dry and intact. [place] intact. No erythema or joint effusion. Calf supple nontender. Neurovascularly intact. Procedures Date of Service Date of Service: 05/10/24 Progress Note: A&P Assessment and plan (1) Status post total left knee replacement: Status: Acute Assessment and Plan: Pain management Begin aspirin for DVT prophylaxis PT for left TKA weightbear as tolerated Dispo pending PT eval Time Spent With Patient Time: Total time managing care of this patient today ____ minutes. Quality Stroke Does the patient have a stroke diagnosis?: No VTE Prior VTE?: No VTE Risk Level:: Surgical - very high VTE Device Contraindication: N/A - Device Ordered VTE Drug Contraindication: N/A - Med Ordered
[2024-05-10 07:54] VITALS: BP 118/67; PULSE 75; RESP 18; TEMP 37.1; O2SAT 96
--- NOTE | 2024-05-10 08:13 | HO.POSTANES ---
Post Anesthesia Evaluation Post Anesthesia Evaluation Date of Service: 05/10/24 Vital Signs: Vital Signs Temp Pulse Resp BP Pulse Ox O2 Del Method 05/10/24 07:54 98.8 F 75 18 118/67 96 Room Air 05/10/24 03:30 97.3 F 112 H 17 126/86 94 Room Air 05/09/24 23:29 98.1 F 117 H 17 146/79 H 95 Room Air Anesthesia: General Endotracheal-GETA Mental Status: Awake Pain Control: Satisfactory Nausea/Vomiting: None Hydration: Adequate Anesthesia-Related Issues: No Anes. Related Issues
[2024-05-10] MEDS: oxyCODONE HCl ER 10 MG TAB.ER.12H PO (08:45)
[2024-05-10] MEDS: Docusate Sodium 100 MG CAPSULE PO (08:45)
[2024-05-10] MEDS: Atorvastatin Calcium 10 MG TABLET PO (08:46)
[2024-05-10] MEDS: Celecoxib 200 MG CAPSULE PO (08:46)
[2024-05-10 10:07] VITALS: BP 118/67; PULSE 75; O2SAT 96
--- NOTE | 2024-05-10 10:46 | MHC.CM.PN ---
Addendum entered by Katheryn Arcos RN 05/10/24 14:24: Patient medically cleared for dc home w/ services. Friend will provide transport at 3pm. RN aware. Original Note: PATIENT LIVES IN A HOME ALONE. FUNCTIONALLY INDEPENDENT. DENIES PRIOR USE OF DME OR SERVICES. HAS A WALKER AT HOME - PURCHASED FOR USE POST OP. PCP DAYNA PETER REPORTS SHE HAS AN HCP LISTING HER FRIEND [facility]. COPY REQUESTED. DP: HOME W/ NEW COMFORT PLUS FOR PT SERVICES, PER PATIENT PREFERENCE. FRIEND DIDI WILL PROVIDE TRANSPORT AND STAY W/ PATIENT TEMPORARILY TO ASSIST PRN.
[2024-05-10 12:00] VITALS: BP 137/62; PULSE 71; RESP 18; TEMP 36.8; O2SAT 93
--- NOTE | 2024-05-10 13:37 | P.DS_ITS ---
DS: Providers Provider Date of Service: 05/10/24 Date of discharge: 05/10/24 Primary care physician: Wendi Dixon MD Consults: 05/09/24 17:31 Consult to Hospitalist Routine Comment: Consulting Provider: [facility] [place] [facility] Reason For Exam: Ongoing medical management, status post L TKA DS: Diagnosis Discharge Diagnosis (1) Status post total left knee replacement: Status: Acute DS: Summary Hospital Course Hospital Course: The patient underwent a successful left total knee arthroplasty on, was transferred to PACU and then to the floor to recover. During their stay, their vitals were stable, afebrile at 98.2. Labs were unremarkable, H/H 10.1/31.6. POD 1 she was started on ASA 325mg tabs po bid for DVT ppx, they also received Physical Therapy services twice a day. Physical therapy should include gait training, ROM to tolerance and quad strength. He is WBAT. Prior to discharge, her dressing was changed, incision clean dry and intact, new Aquacel dressing applied. The Aquacel dressing should remain intact and dry at all times. Any concerns with the dressing, please contact orthopedic office. No showering. The plan is to be discharged home [facility] Time Attestation Discharge Coordination Time (in mins): 30 Quality: Safe Use of Opioids Does Pt have an Active Cancer Diagnosis on the Problem List?: No Quality: Stroke Does the patient have a stroke diagnosis?: No Physical Exam Vital Signs: Vital Signs: Last Vital Signs Temp 98.2 F 05/10/24 12:00 Pulse 71 05/10/24 12:00 Resp 18 05/10/24 12:00 BP 137/62 05/10/24 12:00 Pulse Ox 93 05/10/24 12:00 O2 Del Method Room Air 05/10/24 12:00 BMI result Body Mass Index 27.9 DS: Data Data Completed and Pending Pending studies at discharge: Pending at discharge 05/09/24 12:17 Surgical [PTH] Routine Labs on day of discharge: Laboratory Results - last 24 hr 05/10/24 05:03 WBC 16.8 H RBC 3.40 L Hgb 10.1 L Hct 31.6 L MCV 92.9 MCH 29.7 MCHC 32.0 RDW 13.2 Plt Count 271 MPV 9.1 L Immature Gran % (Auto) 0.5 H Neut % (Auto) 83.9 H Lymph % (Auto) 8.2 L West[place] % (Auto) 7.2 Eos % (Auto) 0.0 Baso % (Auto) 0.2 Lymph # (Auto) 1.4 Weston # (Auto) 1.2 Eos # (Auto) 0.0 Baso # (Auto) 0.0 Abs Immat Gran (auto) 0.09 H Absolute Neuts (auto) 14.1 H Absolute Nucleated RBC 0.000 Nucleated RBC % (auto) 0.0 Sodium 135 Potassium 4.5 Chloride 106 Carbon Dioxide 24 Anion Gap 10 L BUN 22 H Creatinine 0.74 Estim Creat Clear Calc 58.1 Estimated GFR > 60 Fasting Glucose 131 H Calcium 8.9 Discharge Plan Discharge Patient Disposition: Home, Self-Care Referrals: Amanda Urbano PA-C [Physician [employer]] - 05/26/24 1:15 pm Discharge Medications: New celecoxib 200 mg Capsule 200 mg PO BID 30 Days Qty: 60 0RF acetaminophen 325 mg Tablet 650 mg PO Q6H PRN (Reason: Pain, Mild 1-3,Fever,Headache) 30 Days Qty: 240 0RF aspirin 325 mg Tablet 325 mg PO BID 42 Days Qty: 84 0RF docusate sodium 100 mg Capsule 100 mg PO BID 14 Days Qty: 28 0RF oxycodone 5 mg Tablet 5 mg PO Q4H PRN (Reason: Pain, Moderate(Pain Scale 4-6)) 7 Days Qty: 42 0RF Rx Instructions: Partial Fill upon patient request. Continued (DME) walker [facility] See Rx Instructions .ROUTE .MEDSUPPLY Qty: 1 0RF Rx Instructions: Folding front wheeled walker tramadol 50 mg tablet 50 mg PO Q12H PRN (Reason: pain) Qty: 30 0RF glucosamine-chondroitin [Osteo Bi-Flex] 250-200 mg Tablet 2 tab PO DAILY Rx Instructions: give after food/meal cholecalciferol (vitamin D3) [Vitamin D3] 10 mcg (400 unit) Capsule 30 mcg PO BEDTIME [place] 3-6-9 1,200 mg Capsule 1 cap PO BEDTIME magnesium oxide 400 mg magnesium Tablet 400 mg PO BEDTIME omeprazole 20 mg Capsule,Delayed Release(Dr/Ec) 20 mg PO DAILY@0500 PRN (Reason: Acid Reflux) omeprazole 20 mg capsule,delayed release(DR/EC) 20 mg PO DAILY@0630 simvastatin 20 mg tablet 20 mg PO BEDTIME Discharge Orders: Discharge Order (Routine); Ordered 05/10/24 Ordered By: Jewels Ibarra Diet: Advance to usual diet Activity on Discharge: Use cane or walker Activity Restrictions/Additional Instructions: Physical Therapy for ROM 0-120, quad strength, gait training. Use walker for ambulation Limit stair climbing, No shower, No tub bath, No driving Continue aspirin x 6 weeks Keep Aquacel dressing clean, dry and intact. Follow up with orthopedics in 2 weeks Print Language: Maori
--- NOTE | 2024-05-10 13:39 | P.F2F_ITS ---
Service Date Service Date: 05/10/24 Encounter Date of encounter: 05/10/24 Reasons for Services Signs and symptoms assessed: Weakness, poor balance, poor gait mechanics Reason for physical therapy: home safety and mobility, therapeutic exercises, restore joint function, gait/transfer training, ADL training and energy conservation Reason for occupational therapy: home safety and mobility, therapeutic exercises, restore joint function, gait/transfer training, ADL training and energy conservation Overseeing Care: Lawrence Menon Homebound: Leaving the home is medically contraindicated at this time without the asist of a device and/or another person due th the listed conditions above and below. Reason homebound: unsteady gait / fall risk, pain with ambulation, poor balance / fall risk and unable to drive Homebound supporting statement: Pt. is considered home bound due to recent surgery. Unable to drive, poor balance, poor gait mechanics. Certification: Based on the above findings, I certify that this patient is confined to the home and needs intermittent half-way care, physical therapy and/or speech therapy, or continues to need occupational therapy. The patient is under my care, and I have initiated the establishment of the plan of care. The patient will be followed by a physician who will periodically review the plan of care. Time Spent With Patient Time: Total time managing care of this patient today ____ minutes.
[2024-05-10] MEDS: Aspirin 325 MG TABLET PO (14:12)
--- NOTE | 2024-05-10 15:56 | PC.NURSE ---
Discharge instructions reviewed with patient. Verbalized understanding. All questions answered. IV removed.
== END 2024-05-10 16:01 | disposition home or self-care (01) ==
LOC: HO.SSS 08:04 → HO.S3 16:17
PROVIDERS: Physician Assistant; PCP Internal Medicine; Visit Provider Orthopaedic Surgery
PROC: (CPT 27447; principal; 2024-05-09 10:30)
DX: M17.12 Unilateral primary osteoarthritis, left knee (principal); G89.18 Other acute postprocedural pain; M25.562 Pain in left knee; E78.5 Hyperlipidemia, unspecified; N18.2 Chronic kidney disease, stage 2 (mild); I45.10 Unspecified right bundle-branch block; K21.9 Gastro-esophageal reflux disease without esophagitis; K57.30 Diverticulosis of large intestine without perforation or abscess without bleeding; F32.A Depression, unspecified; R73.09 Other abnormal glucose; Z85.828 Personal history of other malignant neoplasm of skin; Z79.899 Other long term (current) drug therapy; Z88.7 Allergy status to serum and vaccine; Z98.890 Other specified postprocedural states
CPT/HCPCS: 27447; 36415; 80048; 85025; 86850; 86900; 86901; 87640; 87641; 88305; 88311; 97162; C1776; J0131; J0665; J0690; J1100; J1171; J2003; J2405; J2704; J3370; J7120

== ENCOUNTER → 2024-05-09 07:21 | Outpatient (BNV) | payer MEDICARE, BC, SELFPAY | PROVIDERS: PCP Internal Medicine; Visit Provider Physician Assistant | DX: K21.9 Gastro-esophageal reflux disease without esophagitis (principal); R03.0 Elevated blood-pressure reading, without diagnosis of hypertension; Z96.652 Presence of left artificial knee joint | CPT/HCPCS: 99222 ==

== ENCOUNTER → 2024-05-09 07:21 | Outpatient (BNV) | payer MEDICARE, BC, SELFPAY | PROVIDERS: PCP Internal Medicine; Visit Provider Orthopaedic Surgery | DX: Z47.1 Aftercare following joint replacement surgery (principal); Z96.652 Presence of left artificial knee joint | CPT/HCPCS: 27447; 99024; G0180 ==

== ENCOUNTER 2024-05-26 10:11 | Outpatient (REF) | payer MEDICARE, BC, SELFPAY ==
--- NOTE | ~2024-05-26 | XR_ITS ---
EXAMINATION: XR KNEE 3 VIEWS LEFT HISTORY: M25.569 - Pain in unspecified knee COMPARISON: Comparison is made with the prior examination dated 01/20/2024. FINDINGS: Standing AP views of the bilateral knees and additional lateral and sunrise patellar views of the left knee are submitted. The patient is status post left total hip arthroplasty. The orthopedic elements are in anatomic alignment. Postoperative changes are noted in the soft tissues. 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 XR/XR knee LT 3V IMPRESSION: Status post left total knee arthroplasty. Electronically signed by: Yassine French MD 05/26/2024 01:58 PM [facility]
== END 2024-05-26 10:12 | disposition home or self-care (01) ==
LOC: HO.HOSX 10:11
PROVIDERS: Visit Provider Physician Assistant
DX: M25.562 Pain in left knee (principal); Z96.652 Presence of left artificial knee joint
CPT/HCPCS: 73562; 99212

== ENCOUNTER 2024-05-26 13:07 | Outpatient (AMB) | payer MEDICARE, SELFPAY ==
--- NOTE | 2024-05-26 13:20 | MHC.OFFVIS ---
Intake Visit Reasons: 2WK PO: L TKA w/ 05/09/24 Intake Note: Leighann is a 83 year old female who presents today for a post op appointment s/p left TKA 05/09/24 Patient reports - . Allergies Influenza Virus Vaccines Allergy (Severe, Verified 05/26/24 13:20) severe flu symptoms HPI HPI 2WK PO: L TKA w/ 05/09/24: Details: Ms. Smyth is an 83-year-old female who presents to the office today for routine follow-up status post left total knee arthroplasty with Dr. Menon on 05/09/2024. Overall the patient is doing very well. She is ambulating with the use of a cane. She is requesting a refill of pain medication. 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) Diverticulosis Varicose vein of leg GERD (gastroesophageal reflux disease) Dyslipidemia Depression Surgical History Hx of bilateral cataract extraction History of arthroplasty of right shoulder Hx of meniscectomy of right knee Hx of prior ablation treatment History of right salpingo-oophorectomy Social History Household Members: None Housing: Homeless Are you a primary neonatal intensive care nurse to a significant other at home: No Do you presently have visiting nurse or other home services: No Comment: aware of trip hazard and will remove Patient Tobacco Use Status: Never used Tobacco service: No Review of Systems Const All systems reviewed & are unremarkable except as noted in HPI and below Physical Exam Const General: cooperative, healthy appearing and no acute distress Resp Effort & Inspection: normal respiratory effort and able to speak in complete sentences Cardio Rate: regular rate Peripheral pulses: Peripheral pulses 2+ throughout Skin Lesions: no lesions Rashes: no rashes Extrem Other: Left knee incision site is clean dry and intact. [place] intact. Able to perform straight leg raise. Range of motion 0-90. Able to dorsiflex and plantar flex. NVI. Assessment & Plan Assessment & Plan (1) Status post total left knee replacement: Code(s): Z96.652 - Presence of left artificial knee joint Category: Surgical Plan Ms. Smyth is an 83-year-old female who presents to the office today for routine follow-up status post left total knee arthroplasty with Dr. Menon on 05/09/2024. Overall the patient is doing very well. She is ambulating with the use of a cane. She is requesting a refill of pain medication. While in the office today, the juan are removed. Steri-Strips applied. Patient will continue with physical therapy. I sent a prescription for an antibiotic prophylactically for possible dental work in the future. However, the patient was educated they should not have any major dental work for the first 3 months post op after a?total knee arthroplasty. Additionally, I also sent a refill of oxycodone 5 mg q.6 hours p.r.n. pain to the pharmacy for patient request. Her follow up with me in [address] Menon, sooner if needed. X-rays of the left knee which were obtained while in the office today and were reviewed by me, Amanda Urbano PA-C, revealed intact orthopedic hardware with proper alignment. Orders: Orders XR knee LT 3V Today M25.569 - Pain in unspecified knee Medications: New amoxicillin 2,000 mg (4 x 500 mg) PO ONCE 4 tabs 0RF take 4 tabs by mouth 1 hour prior to dental ppx 1 day Refilled oxycodone Partial Fill upon patient request. 5 mg PO Q6H PRN 28 tabs 0RF Pain, Moderate(Pain Scale 4-6) 7 days Coding Level of Care Code Global (64736) Diagnoses Status post total left knee replacement Z96.652
--- OUTSIDE RECORDS SUMMARY | 2024-05-26 16:55 | XMS_ITS | Continuity of Care Document ---
Author Organization [facility] Address [address] [place] [id number]- Care Team Providers Care Cement Railroad Car Loader Name Role Phone Zack GILLESPIE, Wendi Gaines Primary Care Physician Encounter [facility] Date(s): 03/30/24 - 04/29/24 [facility] [address] [place] [address]- Attending Physician: Rick Weston Admitting Physician: Rick [...] Team Personnel Name: Wendi Dixon MD Position: [facility] Outreach Member Role: PCP Address: [address] [place] [address] Telecom: Care Team Related Persons Name: ABIMAEL HANNON Insurance Providers Guarantor name: [facility] Information #: 1 Payer: [employer] [facility] [employer] Member Number: NA Policy Number: NA Group Number: NA
== END 2024-05-26 14:01 | disposition home or self-care (01) ==
PROVIDERS: PCP Internal Medicine; Visit Provider Physician Assistant
DX: Z96.652 Presence of left artificial knee joint (principal)
CPT/HCPCS: 99024

== ENCOUNTER → 2024-05-26 13:11 | Outpatient (BNV) | payer MEDICARE, BC, SELFPAY | PROVIDERS: Visit Provider Radiology Diagnostic Radiology | DX: M25.562 Pain in left knee (principal) | CPT/HCPCS: 73562 ==

== ENCOUNTER 2024-06-21 12:36 | Outpatient (AMB) | payer MEDICARE, SELFPAY ==
--- NOTE | 2024-06-21 12:40 | A.OFFVIS_ITS ---
Intake Visit Reasons: 6WK PO: L TKA w/ 05/09/24 Intake Note: Leighann is a 83 year old female who presents today postoperatively after undergoing left total knee replacement on 05/09/24. She reports mild intermittent discomfort in her left knee. She denies any fevers or chills. She does walk with a cane when she is out of her home. She continues with her home physical therapy exercises. Allergies Influenza Virus Vaccines Allergy (Severe, Verified 06/21/24 12:46) severe flu symptoms Medication List - Last Reconciled 06/21/24 by Lawrence Menon MD acetaminophen 650 mg (2 x 325 mg) PO Q6H PRN 30 days amoxicillin 2,000 mg (4 x 500 mg) PO ONCE 1 day aspirin 325 mg PO BID 42 days celecoxib 200 mg PO BID 30 days cholecalciferol (vitamin D3) (Vitamin D3) 30 mcg PO BEDTIME docusate sodium 100 mg PO BID 14 days fish,bora,flax oils-om3,6,9no1 1,200 mg ([place] 3-6-9) 1 cap PO BEDTIME glucosamine-chondroitin 250-200 mg (Osteo Bi-Flex) 2 tabs PO DAILY magnesium oxide 400 mg PO BEDTIME omeprazole 20 mg PO DAILY@0500 PRN omeprazole 20 mg PO DAILY@0630 oxycodone 5 mg PO Q6H PRN 7 days simvastatin 20 mg PO BEDTIME tramadol 50 mg PO Q12H PRN walker Folding front wheeled walker [facility] Medical History Arthritis 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), 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) Diverticulosis Varicose vein of leg GERD (gastroesophageal reflux disease) Dyslipidemia Depression Surgical History Hx of bilateral cataract extraction History of arthroplasty of right shoulder Hx of meniscectomy of right knee Hx of prior ablation treatment History of right salpingo-oophorectomy Social History Household Members: None Housing: Homeless Are you a primary physician assistant primary care to a significant other at home: No Do you presently have visiting nurse or other home services: No Comment: aware of trip hazard and will remove Patient Tobacco Use Status: Never used Tobacco service: No Physical Exam Extrem Other: Left knee examination shows that the surgical incision is well healed, no erythema, full active extension and flexion to 115 degrees, her patella tracks well Assessment & Plan Assessment & Plan (1) Left knee pain: Code(s): M25.562 - Pain in left knee Category: Medical Plan Leighann continues to do very well after undergoing left total knee replacement surgery on 05/09/2024. She will continue with her physical therapy exercises. I did refill her prescription for oxycodone. She does know to take antibiotics before any dental work. She will contact me prior to her follow-up appointment in 2-3 months should any questions or concerns arise. Feel free to call me at any time should questions regarding her orthopedic management arise. Medications: Changed From oxycodone Partial Fill upon patient request. 5 mg PO Q6H 7 days PRN 28 tabs 0RF Pain, Moderate(Pain Scale 4-6) To oxycodone Partial Fill upon patient request. 5 mg PO Q8H PRN 30 tabs 0RF pain Coding Level of Care Code Global [facility] (64846) Diagnoses Left knee pain M25.562
== END 2024-06-21 12:55 | disposition home or self-care (01) ==
PROVIDERS: PCP Internal Medicine; Visit Provider Orthopaedic Surgery
DX: M25.562 Pain in left knee (principal)
CPT/HCPCS: 99024

== ENCOUNTER 2024-09-20 07:41 | Outpatient (REF) | payer MEDICARE, SELFPAY ==
--- NOTE | ~2024-09-20 | XR_ITS ---
EXAMINATION: XR KNEE 3 VIEWS LEFT HISTORY: Z96.652 - Presence of left artificial knee joint COMPARISON: Comparison is made with the prior examination dated 05/26/2024. FINDINGS: AP, lateral, and sunrise patellar views of the left knee are submitted. The patient is again noted to be status post left total knee arthroplasty. The orthopedic elements are in anatomic alignment. There is no radiographic evidence of loosening. There is no fracture or dislocation. There is no joint effusion. There is calcification of the popliteal artery. XR/XR knee LT 3V IMPRESSION: Status post left total knee arthroplasty. Electronically signed by: Yassine French MD 09/20/2024 03:54 PM EDT
== END 2024-09-20 07:42 | disposition home or self-care (01) ==
LOC: HO.HOSX 07:41
PROVIDERS: Visit Provider Orthopaedic Surgery
DX: Z96.652 Presence of left artificial knee joint (principal)
CPT/HCPCS: 73562; 99212

== ENCOUNTER 2024-09-20 13:09 | Outpatient (AMB) | payer MEDICARE, SELFPAY ==
--- NOTE | 2024-09-20 13:15 | A.OFFVIS_ITS ---
Vital Signs 09/20/24 13:16 Height 5 ft 5.5 in Weight 170 lb BMI 27.9 Intake Visit Reasons: OV: L TKA w/ 05/09/24 Intake Note: Leighann is a 84 year old female who presents today postoperatively after undergoing left total knee replacement on 05/09/24. Patient reports mild intermittent discomfort in her left knee. She has returned to work at [employer]. she continues to walk her dogs for exercise. Allergies Influenza Virus Vaccines Allergy (Severe, Verified 09/20/24 13:17) severe flu symptoms Medication List - Last Reconciled 09/20/24 by Lawrence Menon MD acetaminophen 650 mg (2 x 325 mg) PO Q6H PRN 30 days amoxicillin 2,000 mg (4 x 500 mg) PO ONCE 1 day aspirin 325 mg PO BID 42 days cholecalciferol (vitamin D3) (Vitamin D3) 30 mcg PO BEDTIME docusate sodium 100 mg PO BID 14 days fish,bora,flax oils-om3,6,9no1 1,200 mg ([place] 3-6-9) 1 cap PO BEDTIME glucosamine-chondroitin 250-200 mg (Osteo Bi-Flex) 2 tabs PO DAILY magnesium oxide 400 mg PO BEDTIME omeprazole 20 mg PO DAILY@0500 PRN omeprazole 20 mg PO DAILY@0630 oxycodone 5 mg PO Q8H PRN simvastatin 20 mg PO BEDTIME tramadol 50 mg PO Q12H PRN walker Folding front wheeled walker [facility] Medical History Arthritis 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), 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) Diverticulosis Varicose vein of leg GERD (gastroesophageal reflux disease) Dyslipidemia Depression Surgical History Hx of bilateral cataract extraction History of arthroplasty of right shoulder Hx of meniscectomy of right knee Hx of prior ablation treatment History of right salpingo-oophorectomy Social History Household Members: None Housing: Homeless Are you a primary post acute care nurse to a significant other at home: No Do you presently have visiting nurse or other home services: No Comment: aware of trip hazard and will remove Patient Tobacco Use Status: Never used Tobacco service: No Physical Exam Vital Signs: BMI result Body Mass Index 27.9 Const Other: Well-nourished well-developed very friendly female awake alert and oriented x3 in no acute distress Extrem Other: Bilateral lower extremity examination shows good capillary refill, no skin lesions noted, normal sensation light touch Left knee examination shows that the surgical incision is well healed, no erythema, full active extension and flexion to 125 degrees, her patella tracks well Results Reviewed Results Reviewed: X-rays of the patient's left knee taken today show a total knee arthroplasty in good position with no signs of loosening, no acute bony abnormalities Assessment & Plan Assessment & Plan (1) Status post total left knee replacement: Code(s): Z96.652 - Presence of left artificial knee joint Category: Medical Plan Ms. Smyth continues to do well after undergoing left total knee replacement surgery on 05/09/2024. She will continue with her exercise program. She does know to take antibiotics before any dental work. She will contact me prior to her follow-up appointment in 3 months should any questions or concerns arise. Feel free to call me at any time should questions regarding her orthopedic management arise. I spent 21 minutes in reviewing the patient's records and imaging studies, seeing the patient and documenting in the medical record. Orders: Orders 2 XR knee LT 3V Today Z96.652 - Presence of left artificial knee joint Coding Level of Care Code Est Pt Level 3 (11019) Complex EM visit Add On G2211 Diagnoses Status post total left knee replacement Z96.652
[2024-09-20 13:16] VITALS: BMI 27.9
== END 2024-09-20 13:41 | disposition home or self-care (01) ==
LOC: HO.HOS 13:10
PROVIDERS: PCP Internal Medicine; Visit Provider Orthopaedic Surgery
DX: Z47.1 Aftercare following joint replacement surgery (principal); Z96.652 Presence of left artificial knee joint
CPT/HCPCS: 99213; G2211

== ENCOUNTER → 2024-09-20 13:11 | Outpatient (BNV) | payer MEDICARE, SELFPAY | PROVIDERS: Visit Provider Radiology Diagnostic Radiology | DX: Z96.652 Presence of left artificial knee joint (principal) | CPT/HCPCS: 73562 ==

== ENCOUNTER 2025-01-11 08:26 | Outpatient (REF) | payer MEDICARE, SELFPAY ==
--- NOTE | ~2025-01-11 | XR_ITS ---
EXAMINATION: XR KNEE, LEFT CLINICAL INFORMATION: M25.562 - Pain in left knee COMPARISON: September 20, 2024 TECHNIQUE: Three views of the left knee. FINDINGS: Total knee arthroplasty has been performed. Hardware is intact and aligned. There is no joint effusion. There is stable 8 cm long axis calcification in the central medullary space of the distal femoral diaphysis without endosteal scalloping. It demonstrates rings and arcs consistent with chondroid matrix. Atherosclerotic calcification is present in the femoral artery. XR/XR knee LT 3V IMPRESSION: Total knee arthroplasty. No joint effusion. 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 Electronically signed by: Jasson Mei MD 01/11/2025 02:43 PM EDT
--- OUTSIDE RECORDS SUMMARY | 2025-01-12 09:31 | XMS_ITS | Encounter Summary ---
Author Organization [facility] Address [address] [place] [address] Phone Care Team Providers Care Flying Squad Worker Name Role Phone Eliel Krishnan MD Primary Care Provider Wendi Joiner MD Primary Care Provider [phone] -[phone] Encounter Details Date Type Department Care Team (Late st Contact Info) Description 03/10/2017 Ancillary Orders [address] [address] Dylan Whitley DO [address] [place] [address] Orthopedics & Sports Medicine, [place] [address] [email or web address] Left shoulder pain, unspecified chronicity Social History [...] chronicity documented in this encounter Care Teams Flying Squad Worker Relationship Specialty Start Date End Date Eliel Krishnan MD PCP - General 05/20/13 04/27/23 Wendi Dixon MD [address] [place] [address] [email or web address] PCP - General Internal Medicine 04/28/23 documented as of this encounter Additional Source Comments The information contained in this document represents components of the legal health record. It is not the complete legal health record.[facility]
--- OUTSIDE RECORDS SUMMARY | 2025-01-12 09:32 | XMS_ITS | Encounter Summary ---
Author Organization [facility] Address [address] [place] [address] Phone Care Team Providers Care Cook Chef Name Role Phone Eliel Krishnan MD Primary Care Provider Wendi Joiner MD Primary Care Provider [phone] [phone] Encounter Details Date Type Department Care Team (Late st Contact Info) Description 06/17/2017 Procedure Pass [facility], Ct Scan - [address] [address] Social History Tobacco Use Types Packs/Day Years [...] on filedocumented in this encounter Care Teams Cook Chef Relationship Specialty Start Date End Date Eliel Krishnan MD PCP - General 05/20/13 04/27/23 Wendi Dixon MD [address] [place] [address] [email or web address] PCP - General Internal Medicine 04/28/23 documented as of this encounter Additional Source Comments The information contained in this document represents components of the legal health record. It is not the complete legal health record.[facility]
--- OUTSIDE RECORDS SUMMARY | 2025-01-12 09:32 | XMS_ITS | Encounter Summary ---
Author Organization [facility] Address [address] [place] [address] Phone Care Team Providers Care Group Account Director Name Role Phone Eliel Krishnan MD Primary Care Provider Wendi Joiner MD Primary Care Provider [phone] [phone] Encounter Details Date Type Department Care Team (Late st Contact Info) Description 01/20/2023 Ancillary Orders [facility] Orthopedics & Sports Medicine [address] [place] [address] Ivy Rey MD [address] [place] [address] Orthopedics & Sports Medicine, [facility] [place] [address] [email or web address] Social History Tobacco Use [...] on filedocumented in this encounter Care Teams Group Account Director Relationship Specialty Start Date End Date Eliel Krishnan MD PCP - General 05/20/13 04/27/23 Wendi Dixon MD [address] [place] [address] [email or web address] PCP - General Internal Medicine 04/28/23 documented as of this encounter Additional Source Comments The information contained in this document represents components of the legal health record. It is not the complete legal health record.[facility]
--- OUTSIDE RECORDS SUMMARY | 2025-01-12 09:32 | XMS_ITS | Encounter Summary ---
Author Organization [facility] Address [address] [facility] [address] [place] [address] Phone Care Team Providers Care Recreation Officer Name Role Phone Eliel Krishnan MD Primary Care Provider Wendi Joiner MD Primary Care Provider [phone] [phone] Encounter Details Date Type Department Care Team (Late st Contact Info) Description 08/10/2017 Ancillary Orders [address] [address] Tona Peralta PA-C [address] [place] [address] Orthopedics & Sports Medicine, [place], [place] [id number] [email or web address] Left shoulder pain, unspecified chronicity Social History [...] chronicity documented in this encounter Care Teams Recreation Officer Relationship Specialty Start Date End Date Eliel Krishnan MD PCP - General 05/20/13 04/27/23 Wendi Dixon MD [address] [place] [address] [email or web address] PCP - General Internal Medicine 04/28/23 documented as of this encounter Additional Source Comments The information contained in this document represents components of the legal health record. It is not the complete legal health record.[facility]
--- OUTSIDE RECORDS SUMMARY | 2025-01-12 09:32 | XMS_ITS | Encounter Summary ---
Author Organization [facility] Address [address] [facility] [address] [place] [address] Phone Care Team Providers Care Traffic Workforce Representative Name Role Phone Eliel Krishnan MD Primary Care Provider Wendi Joiner MD Primary Care Provider [phone] [phone] Encounter Details Date Type Department Care Team (Late st Contact Info) Description 07/30/2017 Procedure Pass OR Admitting Dept - Virtual Department 30 [place] [address] Social History Tobacco Use Types Packs/Day Years [...] on filedocumented in this encounter Care Teams Traffic Workforce Representative Relationship Specialty Start Date End Date Eliel Krishnan MD PCP - General 05/20/13 04/27/23 Wendi Dixon MD [address] [place] [id number] [email or web address] PCP - General Internal Medicine 04/28/23 documented as of this encounter Additional Source Comments The information contained in this document represents components of the legal health record. It is not the complete legal health record.[facility]
--- OUTSIDE RECORDS SUMMARY | 2025-01-12 09:32 | XMS_ITS | Encounter Summary ---
Author Organization [facility] Address [address] [facility] [address] [place] [address] Phone Care Team Providers Care Partition Notcher Name Role Phone Eliel Krishnan MD Primary Care Provider Wendi Joiner MD Primary Care Provider [phone] [phone] Encounter Details Date Type Department Care Team (Latest Contact Info) Description 03/31/2023 Ancillary Orders [address] [address] Ivy Rey MD [address] [place] [address] Orthopedics & Sports Medicine, [place] [address] [email or web address] Osteoarthritis of left knee, unspecified osteoarthritis [...] Primary documented in this encounter Care Teams Partition Notcher Relationship Specialty Start Date End Date Eliel Krishnan MD PCP - General 05/20/13 04/27/23 Wendi Dixon MD [address] [place] [address] [email or web address] PCP - General Internal Medicine 04/28/23 documented as of this encounter Additional Source Comments The information contained in this document represents components of the legal health record. It is not the complete legal health record.[facility]
--- OUTSIDE RECORDS SUMMARY | 2025-01-12 09:32 | XMS_ITS | Encounter Summary ---
Author Organization [facility] Address [address] [facility] [address] [place] [address] Phone Care Team Providers Care Hearing And Speech Assistant Name Role Phone Eliel Krishnan MD Primary Care Provider Wendi Joiner MD Primary Care Provider [phone] Encounter Details Date Type Department Care Team (Latest Contact Info) Description 04/24/2023 Ancillary Orders [address] [address] Ivy Rey MD [address] [place] [address] Orthopedics & Sports Medicine, [place] [address] [email or web address] Osteoarthritis of left knee, unspecified osteoarthritis [...] Primary documented in this encounter Care Teams Hearing And Speech Assistant Relationship Specialty Start Date End Date Eliel Krishnan MD PCP - General 05/20/13 04/27/23 Wendi Dixon MD [address] [place] [address] [email or web address] PCP - General Internal Medicine 04/28/23 documented as of this encounter Additional Source Comments The information contained in this document represents components of the legal health record. It is not the complete legal health record.[facility]
--- OUTSIDE RECORDS SUMMARY | 2025-01-12 09:32 | XMS_ITS | Encounter Summary ---
Author Organization [facility] Address [address] [facility] [address] [place] [address] Phone Care Team Providers Care Refuge Manager Name Role Phone Eliel Krishnan MD Primary Care Provider Wendi Joiner MD Primary Care Provider [phone] [phone] Encounter Details Date Type Department Care Team (Latest Contact Info) Description 01/20/2023 Ancillary Orders [address] [address] Ivy Rey MD [address] [place] [address] Orthopedics & Sports Medicine, [place] [address] [email or web address] Osteoarthritis of right knee, unspecified osteoarthritis [...] type documented in this encounter Care Teams Refuge Manager Relationship Specialty Start Date End Date Eliel Krishnan MD PCP - General 05/20/13 04/27/23 Wendi Dixon MD [address] [place] [address] [email or web address] PCP - General Internal Medicine 04/28/23 documented as of this encounter Additional Source Comments The information contained in this document represents components of the legal health record. It is not the complete legal health record.[facility]
--- OUTSIDE RECORDS SUMMARY | 2025-01-12 09:32 | XMS_ITS | Encounter Summary ---
Author Organization [facility] Address [address] [facility] [address] [address] [place] [address] Phone Care Team Providers Care Team Assembly Line Machine Operator Name Role Phone Wendi Dixon MD Primary Care Provider [phone] [phone] Encounter Details Date Type Department Care Team (Late st Contact Info) Description 05/23/2024 Procedure Pass OR Admitting Dept - Virtual Department 30 [place] [address] Social History Tobacco Use Types Packs/Day Years [...] on filedocumented in this encounter Care Teams Team Assembly Line Machine Operator Relationship Specialty Start Date End Date Wendi Dixon MD [address] [place] [address] [address] [place] [address] [email or web address] PCP - General Internal Medicine 04/28/23 documented as of this encounter Additional Source Comments The information contained in this document represents components of the legal health record. It is not the complete legal health record.[facility]
--- OUTSIDE RECORDS SUMMARY | 2025-01-12 09:32 | XMS_ITS | Clinical Summary ---
Author Organization [facility] Address [address] [facility] [address] [place] [address] Phone Care Team Providers Care Supervisor Intelligence Analyst Name Role Phone Wendi Dixon MD Primary Care Provider [phone] [phone] Allergies Active Allergy Reactions Criticality Noted Date [...] this topic Medical Devices Implanted Type Area Administrative Secretary Device Identifier Shelf Expiration Date Model / Serial / Lot Aequalis Perform Glenoid Cortiloc M35 Shoulder 02 Nc - [id number] Implanted:Qty: 1 on 07/30/2017 by Dylan Whitley DO at [facility] Left: Shoulder [employer] 04/03/2021 [id number] / [id number] / Cement Bone 40gr [place] [employer] - [id number] Implanted:Qty: 1 on 07/30/2017 by Dylan Whitley DO at [facility] Left: Shoulder [employer]ORE 09/24/2018 [id number] / / [id number] Ascend Flex Standard Ptc Humeral Stem Shoulder 14 - [id number] Implanted:Qty: 1 on 07/30/2017 by Dylan Whitley DO at [facility] Left: Shoulder [employer] 09/09/2021 [id number] / [id number] / [id number] High Offset Ascend Flex Stb Humeral Head Onc 22 - [id number] Implanted:Qty: 1 on 07/30/2017 by Dylan Whitley DO at [facility] Left: Shoulder [employer] 02/09/2022 [id number] / [id number] / Insurance MEDICARE HMO REPLACEMENT [facility] [place] MEDICARE HMO REPLACEMENT MEDICARE HMO REPLACEMENT MEDICARE HMO REPLACEMENT [facility] [place] MEDICARE HMO REPLACEMENT MEDICARE HMO REPLACEMENT [place] [place] MEDICARE HMO REPLACEMENT [place] [place] MEDICARE HMO REPLACEMENT Advance Directives For more information, please contact: [phone] (9AM - 5PM [place], Thursday-Thursday) * Full Code (Presumed) (Latest Code Status on File) Date Activated Date Inactivated Comments 07/30/2017 1:31 PM 08/01/2017 3:39 PM * Full Code (Presumed) Date Activated Date Inactivated Comments 07/30/2017 6:17 AM 07/30/2017 1:31 PM Healthcare Agents on File Name Relationship Healthcare Agent Relationsnm p Communication Stacey Lobo Friend .Primary Healt h Care Agent (Proxy form on file) Care Teams Supervisor Intelligence Analyst Relationship Specialty Start Date End Date Wendi Dixon MD [address] [place] [address] [email or web address] PCP - General Internal Medicine 04/28/23 Additional Source Comments The information contained in this document represents components of the legal health record. It is not the complete legal health record.[facility]
--- OUTSIDE RECORDS SUMMARY | 2025-01-12 09:32 | XMS_ITS | Encounter Summary ---
Author Organization [facility] Address [address] [facility] [address] [place] [address] Phone Care Team Providers Care Timber Mill Worker Name Role Phone Eliel Krishnan MD Primary Care Provider Wendi Joiner MD Primary Care Provider [phone] Encounter Details Date Type Department Care Team (Late st Contact Info) Description 03/10/2017 Ancillary Orders [facility] Orthopedics & Sports Medicine [address] [place] [address] Dylan Whitley DO [address] [place] [address] Orthopedics & Sports Medicine, [place] [address] [email or web address] Social History Tobacco Use [...] on filedocumented in this encounter Care Teams Timber Mill Worker Relationship Specialty Start Date End Date Eliel Krishnan MD PCP - General 05/20/13 04/27/23 Wendi Dixon MD [address] [place] [address] [email or web address] PCP - General Internal Medicine 04/28/23 documented as of this encounter Additional Source Comments The information contained in this document represents components of the legal health record. It is not the complete legal health record.[facility]
--- OUTSIDE RECORDS SUMMARY | 2025-01-12 09:32 | XMS_ITS | Encounter Summary ---
Author Organization [facility] Address [address] [facility] [address] [place] [address] Phone Care Team Providers Care Electrician Helper Powerhouse Name Role Phone Eliel Krishnan MD Primary Care Provider Wendi Joiner MD Primary Care Provider [phone] [phone] Encounter Details Date Type Department Care Team (Late st Contact Info) Description 08/10/2017 Ancillary Orders [facility] Orthopedics & Sports Medicine [address] [place] [address] Tona Peralta PA-C [address] [place] [address] Orthopedics & Sports Medicine, [facility] [place] [address] [email or web address] Social History Tobacco Use Types Packs/Day Years [...] on filedocumented in this encounter Care Teams Electrician Helper Powerhouse Relationship Specialty Start Date End Date Eliel Krishnan MD PCP - General 05/20/13 04/27/23 Wendi Dixon MD [address] [place] [address] [address] [place] [address] [phone] (work) [email or web address] PCP - General Internal Medicine 04/28/23 documented as of this encounter Additional Source Comments The information contained in this document represents components of the legal health record. It is not the complete legal health record.[facility]
== END 2025-01-11 08:27 | disposition home or self-care (01) ==
LOC: HO.HOSX 08:26
PROVIDERS: Visit Provider Orthopaedic Surgery
DX: M25.562 Pain in left knee (principal); M72.2 Plantar fascial fibromatosis; Z96.651 Presence of right artificial knee joint
CPT/HCPCS: 73562; 99212

== ENCOUNTER 2025-01-11 13:20 | Outpatient (AMB) | payer MEDICARE, SELFPAY ==
--- NOTE | 2025-01-11 13:31 | MHC.OFFVIS ---
Intake Visit Reasons: OV: L TKA w/ 05/09/24 Intake Note: Leighann is a 84 year old female who presents with complaints of mild intermittent discomfort in her left knee after undergoing left total knee replacement surgery on 05/09/2024. She is most concerned with pain in her left foot. She denies any numbness or tingling. The patient states that she continues to work at [employer] and is on her feet for most of her shift. She has been doing gentle stretching exercises for her foot. She takes Aleve as needed. Allergies Influenza Virus Vaccines Allergy (Severe, Verified 09/20/24 13:17) severe flu symptoms Medication List - Last Reconciled 01/11/25 by Lawrence Menon MD acetaminophen 650 mg (2 x 325 mg) PO Q6H PRN 30 days amoxicillin 2,000 mg (4 x 500 mg) PO ONCE 1 day aspirin 325 mg PO BID 42 days cholecalciferol (vitamin D3) (Vitamin D3) 30 mcg PO BEDTIME docusate sodium 100 mg PO BID 14 days fish,bora,flax oils-om3,6,9no1 1,200 mg ([place] 3-6-9) 1 cap PO BEDTIME glucosamine-chondroitin 250-200 mg (Osteo Bi-Flex) 2 tabs PO DAILY magnesium oxide 400 mg PO BEDTIME omeprazole 20 mg PO DAILY@0500 PRN omeprazole 20 mg PO DAILY@0630 oxycodone 5 mg PO Q8H PRN simvastatin 20 mg PO BEDTIME tramadol 50 mg PO Q12H PRN walker Folding front wheeled walker [facility] Medical History Arthritis 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), 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) Diverticulosis Varicose vein of leg GERD (gastroesophageal reflux disease) Dyslipidemia Depression Surgical History Hx of bilateral cataract extraction History of arthroplasty of right shoulder Hx of meniscectomy of right knee Hx of prior ablation treatment History of right salpingo-oophorectomy Social History (Updated 01/11/25 @ 13:36 by Rosario Mejias) Household Members: None Housing: Homeless Are you a primary child care centre manager to a significant other at home: No Do you presently have visiting nurse or other home services: No Comment: aware of trip hazard and will remove Patient Tobacco Use Status: Never used Tobacco service: No Current occupational status: employed 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* Physical Exam Const Other: Well-nourished well-developed very friendly female awake alert and oriented x3 in no acute distress Extrem Other: Left knee examination shows that the surgical incision is well healed, no erythema, full active extension and flexion to 120 degrees, her patella tracks well Left foot examination shows tenderness over her plantar fascia, no overlying skin lesions Results Reviewed Results Reviewed: X-rays of the patient's left knee taken today show a total knee arthroplasty in good position with no signs of loosening, no acute bony abnormalities Assessment & Plan Assessment & Plan (1) Left knee pain: Code(s): M25.562 - Pain in left knee Category: Medical (2) Plantar fasciitis, left: Code(s): M72.2 - Plantar fascial fibromatosis Category: Medical Plan Leighann continues to do well after undergoing left total knee replacement surgery on 05/09/2024. She will continue with her home exercise program. She does know to take antibiotics before any dental work. The patient does have left foot pain most likely due to plantar fasciitis. Thus, I will refer her to our podiatry department for further evaluation. She will contact me prior to her annual follow-up appointment should any questions or concerns arise. Feel free to call me at any time should questions regarding her orthopedic arise. I spent 21 minutes in reviewing the patient's records and imaging studies, seeing the patient and documenting in the medical record. Orders: Orders XR knee LT 3V Today M25.562 - Pain in left knee Referrals Podiatry Referral M72.2 - Plantar fascial fibromatosis Coding Level of Care Code Est Pt Level 3 (93097) Complex EM visit Add On G2211 Diagnoses Left knee pain M25.562 Plantar fasciitis, left M72.2
--- OUTSIDE RECORDS SUMMARY | 2025-01-11 17:03 | XMS_ITS | Encounter Summary ---
Author Organization [facility] Address [address] [place] [address] Phone Care Team Providers Care Bindery Worker Name Role Phone Eliel Krishnan MD Primary Care Provider Wendi Joiner MD Primary Care Provider [phone] Encounter Details Date Type Department Care Team (Late st Contact Info) Description 01/20/2023 Ancillary Orders [facility] Sports Medicine [address] [place] [id number] Ivy Rey MD [address] [place] [address] Orthopedics & Sports Medicine, [facility] [place] [address] [email or web address] Social History Tobacco Use Types Packs/Day Years Used Date Smoking Tobacco: Never Smokeless Tobacco: Never Alcohol Use Standard Drinks/Week Comments Yes 7 (1 standard drink = 0.6 oz pur e alcohol) Education Answer Date Recorded Are you interested in more education? Not on krupa e 08/23/2022 Are you concerned about learning? Not on file 08/23/2022 No 08/23/2022 No 08/23/2022 Digital Access Answer Date Recorded No 09/20/2022 No 09/20/2022 Reliable internet access at home? Not on file 09/20/2022 Device with a working camera? Not on file Comments Unknown Sex and Gender Information Value Date Recorded Sex Assigned at Not on file Legal Sex Female 6:34 PM EST Gender Identity Not on file Sexual Orientation Not on file documented as of this encounter Plan of Treatment Not on file documented as of this encounter Visit Diagnoses Not on filedocumented in this encounter Care Teams Bindery Worker Relationship Specialty Start Date End Date Eliel Krishnan MD PCP - General 05/20/13 04/27/23 Wendi Dixon MD [address] [place] [address] [email or web address] PCP - General Internal Medicine 04/28/23 documented as of this encounter Additional Source Comments The information contained in this document represents components of the legal health record. It is not the complete legal health record.[facility]
--- OUTSIDE RECORDS SUMMARY | 2025-01-11 17:03 | XMS_ITS | Encounter Summary ---
Author Organization [facility] Address [address] [place] [address] Phone Care Team Providers Care Motel Front Desk Clerk Name Role Phone Eliel Krishnan MD Primary Care Provider Wendi Joiner MD Primary Care Provider [phone] Encounter Details Date Type Department Care Team (Latest Contact Info) Description 04/24/2023 Ancillary Orders [address] [address] Ivy Rey MD [address] [place] [address] Orthopedics & Sports Medicine, [place] [address] [email or web address] Osteoarthritis of left knee, unspecified osteoarthritis type (Primary Dx) Social History Tobacco Use Types Packs/Day Years [...] as of this encounter Plan of Treatment Pending Results Name Type Priority Associated Diagnoses Date /Time FL Guidance Needle Placement Non-Spine Imaging Routine Osteoarthritis of left knee, unspecified osteoarthritis type 04/28/2023 8:42 AM EST Scheduled Orders Name Type Priority Associated Diagnoses Orde r Schedule FL Guidance Needle Placement Non-Spine Imaging Routine Osteoarthritis of left knee, unspecified osteoarthritis type 1 Occurrences starting 04/24/2023 until 07/24/2023 documented as of this encounter Visit Diagnoses Diagnosis Osteoarthritis of left knee, unspecified osteoarthritis type- Primary documented in this encounter Care Teams Motel Front Desk Clerk Relationship Specialty Start Date End Date Eliel Krishnan MD PCP - General 05/20/13 04/27/23 Wendi Dixon MD [address] [place] [address] [email or web address] PCP - General Internal Medicine 04/28/23 documented as of this encounter Additional Source Comments The information contained in this document represents components of the legal health record. It is not the complete legal health record.[facility]
--- OUTSIDE RECORDS SUMMARY | 2025-01-11 17:03 | XMS_ITS | Encounter Summary ---
Author Organization [facility] Address [address] [place] [address] Phone Care Team Providers Care Dulite Machine Bluer Name Role Phone Eliel Krishnan MD Primary Care Provider Wendi Joiner MD Primary Care Provider +1 [phone] Encounter Details Date Type Department Care Team (Late st Contact Info) Description 08/10/2017 Ancillary Orders [address] [address] Tona Peralta PA-C [address] [place] [address] Orthopedics & Sports Medicine, [place], [place] [id number] [email or web address] Left shoulder pain, unspecified chronicity Social History Tobacco Use Types Packs/Day Years Used Date Smoking Tobacco: Never Smokeless Tobacco: Never Alcohol Use Standard Drinks/Week Comments Yes 7 (1 standard drink = 0.6 oz pur e alcohol) Comments Unknown Sex and Gender Information Value Date Recorded Sex Assigned at Not on file Legal Sex Female 6:34 PM EST Gender Identity Not on file Sexual Orientation Not on file documented as of this encounter Plan of Treatment Not on file documented as of this encounter Results * XR SHOULDER 2 VIEWS (LEFT) (08/12/2017 3:25 PM EDT) Narrative Elvira Velazquez - 08/12/2017 3:25 PM EDT This image report has been auto-finalized and has not been read by a Radiologist. Interpretation has been included in the provider encounter note for this date of service. Tona Peralta PA-C IMG XR UPPER EXTREMI TY Final Result documented in this encounter Visit Diagnoses Diagnosis Left shoulder pain, unspecified chronicity Left shoulder pain, unspecified chronicity documented in this encounter Care Teams Dulite Machine Bluer Relationship Specialty Start Date End Date Eliel Krishnan MD PCP - General 05/20/13 04/27/23 Wendi Dixon MD [address] [place] [address] [email or web address] PCP - General Internal Medicine 04/28/23 documented as of this encounter Additional Source Comments The information contained in this document represents components of the legal health record. It is not the complete legal health record.[facility]
--- OUTSIDE RECORDS SUMMARY | 2025-01-11 17:03 | XMS_ITS | Encounter Summary ---
Author Organization [facility] Address [address] [place] [address] Phone Care Team Providers Care Creative Specialist Name Role Phone Wendi Dixon MD Primary Care Provider +1 [phone] Encounter Details Date Type Department Care Team (Late st Contact Info) Description 05/23/2024 Procedure Pass [place] Admitting Dept - Virtual Department [address] [place] [address] Social History Tobacco Use Types Packs/Day Years [...] on filedocumented in this encounter Care Teams Creative Specialist Relationship Specialty Start Date End Date Wendi Dixon MD [address] [place] [address] [address] [place] [address] [email or web address] PCP - General Internal Medicine 04/28/23 documented as of this encounter Additional Source Comments The information contained in this document represents components of the legal health record. It is not the complete legal health record.[facility]
--- OUTSIDE RECORDS SUMMARY | 2025-01-11 17:03 | XMS_ITS | Encounter Summary ---
Author Organization [facility] Address [address] [place] [address] Phone Care Team Providers Care Structural Steel Equipment Erector Name Role Phone Eliel Krishnan MD Primary Care Provider Wendi Joiner MD Primary Care Provider [phone] [phone] Encounter Details Date Type Department Care Team (Late st Contact Info) Description 06/17/2017 Procedure Pass [facility], Ct Scan - [address] [address] Social History Tobacco Use Types Packs/Day Years Used Date Smoking Tobacco: Never Smokeless Tobacco: Never Alcohol Use Standard Drinks/Week Comments No 0 (1 standard drink = 0.6 oz pur [...] on filedocumented in this encounter Care Teams Structural Steel Equipment Erector Relationship Specialty Start Date End Date Eliel Krishnan MD PCP - General 05/20/13 04/27/23 Wendi Dixon MD [address] [place] [id number] [email or web address] PCP - General Internal Medicine 04/28/23 documented as of this encounter Additional Source Comments The information contained in this document represents components of the legal health record. It is not the complete legal health record.[facility]
--- OUTSIDE RECORDS SUMMARY | 2025-01-11 17:03 | XMS_ITS | Encounter Summary ---
Author Organization [facility] Address [address] [place] [address] Phone Care Team Providers Care T Rail Turner Name Role Phone Eliel Krishnan MD Primary Care Provider Wendi Joiner MD Primary Care Provider [phone] [phone] Encounter Details Date Type Department Care Team (Late st Contact Info) Description 03/10/2017 Ancillary Orders [address] [address] Dylan Whitley DO [address] [place] [address] Orthopedics & Sports Medicine, [place] [address] [email or web address] Left shoulder pain, unspecified chronicity Social History Tobacco Use Types Packs/Day Years Used Date Smoking Tobacco: Never Comments Unknown Sex and Gender Information Value Date Recorded Sex Assigned at Not on file Legal Sex Female 6:34 PM EST Gender Identity Not on file Sexual Orientation Not on file documented as of this encounter Plan of Treatment Pending Results Name Type Priority Associated Diagnoses Date /Time FL Guidance Needle Placement Non-Spine Imaging Routine Left shoulder pain, unspecified chronicity 03/11/2017 8:30 AM EST Scheduled Orders Name Type Priority Associated Diagnoses Orde r Schedule FL Guidance Needle Placement Non-Spine Imaging Routine Left Shoulder Pain, Unspecified Chronicity Expected: 03/10/2017, Expires: 03/10/2018 documented as of this encounter Visit Diagnoses Diagnosis Left shoulder pain, unspecified chronicity documented in this encounter Care Teams T Rail Turner Relationship Specialty Start Date End Date Eliel Krishnan MD PCP - General 05/20/13 04/27/23 Wendi Dixon MD [address] [place] [address] [email or web address] PCP - General Internal Medicine 04/28/23 documented as of this encounter Additional Source Comments The information contained in this document represents components of the legal health record. It is not the complete legal health record.[facility]
--- OUTSIDE RECORDS SUMMARY | 2025-01-11 17:03 | XMS_ITS | Clinical Summary ---
Author Organization [facility] Address [address] [place] [address] Phone Care Team Providers Care Pipe Production Worker Name Role Phone Wendi Dixon MD Primary Care Provider [phone] [phone] Allergies Active Allergy Reactions Criticality Noted Date Comments Cortisone Unknown 11/17/2016 Medications omeprazole (PRILOSEC) 20 MG capsule Take 20 mg by mouth daily. Active coenzyme Q10 100 mg capsule Take 100 mg by mouth daily. Active CHOLECALCIFEROL , VITAMIN D3, (VITAMIN D3 ORAL) Take by mouth. Active bacillus coagulans-inuli n 1 billion-250 cell-mg Cap Take 250 mg by mouth daily. Active simvastatin (ZOCOR) 20 MG tablet 2 09/07/2017 Active naproxen sodium (ALEVE) 220 MG tablet Take 220 mg by mouth 2 (two) times a day with meals. Active vitamin E 1000 UNIT capsule Take 1,000 Units by mouth daily. Active b complex vitamins capsule Take 1 capsule by mouth daily. Active multivit-min/fe rrous fumarate (MULTI VITAMIN ORAL) Take by mouth. Active magnesium oxide 250 mg (150 mg elemental) Tab Take 250 mg by mouth daily. 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 24 Primary osteoarthritis of both knees 11/10/2023 Hx of total shoulder replacement, left 9 Myalgia 06/16/2018 Sacroiliitis, not elsewhere classified 9 Shoulder pain 04/09/2011 Overview (06/17/2014): Shoulder pain Resolved Problems Problem Noted Date Diagnosed Date Resolved Date Primary osteoarthritis of left shoulder 07/30/2017 11/10/2023 Osteoarthritis of left shoulder 03/11/2017 11/10/2023 Immunizations Immunization Administration Dates Next Due Pneumococcal conjugate PCV13 07/31/2015 Family History Medical History Relation Comments Heart disease Father Emphysema Mother Relation Status Comments Brother 1 Brother 2 Alive Father Mother Other Sister 1 Sister 2 Alive Social History Tobacco Use Types Packs/Day Years [...] on file Sexual Orientation Not on file Last Filed Vital Signs Vital Sign Reading Time Taken Comments Blood Pressure 147/88 06/30/2018 2:54 PM EST Pulse 64 06/30/2018 2:54 PM EST Temperature 38 C (100.4 F) 08/01/2017 8:33 AM EDT Respiratory Rate 20 08/01/2017 8:33 AM EDT Oxygen Saturation 98% 08/01/2017 8:33 AM EDT Inhaled Oxygen Concentration - - Weight 74.2 kg (163 lb 8 oz) 11/10/2023 10:16 AM EDT Height 156.5 cm (5' 1.61 ) 11/10/2023 10:16 AM E DT Body Mass Index 30.28 11/10/2023 10:16 AM EDT Plan of Treatment Health Maintenance Due Date Last Done Comments Adult Td,Tdap Booster 1940 DEPRESSION SCREENING 1951 ZOSTER VACCINES (1 of 2) 08/07/1989 OSTEOPOROSIS SCREENING INITI AL (ONE-TIME) 08/07/2004 RSV VACCINE (1 - 1-dose 75+ series) 08/07/2014 PNEUMOCOCCAL VACCINES (50+ years) (2 of 2 - PPSV23) 07/30/2016 07/31/2015 INFLUENZA VACCINE (#1) 2024 COVID-19 VACCINE (3 - 2024-2 6 season) 2024 09/25/2020, 06/01/2020 HEPATITIS A VACCINES Aged Out No long er eligible based on patient's age to complete this topic HIB VACCINES Aged Out No longer eligi ble based on patient's age to complete this topic MENINGOCOCCAL VACCINES (ACWY) Aged Out No longer eligible based on patient's age to complete this topic MENINGOCOCCAL VACCINES (B) Aged Out N o longer eligible based on patient's age to complete this topic Medical Devices Implanted Type Area Commissioned Sales Associate Device Identifier Shelf Expiration Date Model / Serial / Lot Aequalis Perform Glenoid Cortiloc M35 Shoulder 02 Nc - [id number] Implanted:Qty: 1 on 07/30/2017 by Dylan Whitley DO at [facility] Left: Shoulder [employer] 04/03/2021 [id number] / [id number] / Cement Bone 40gr [employer]v - [id number] Implanted:Qty: 1 on 07/30/2017 by Dylan Whitley DO at [facility] Left: Shoulder ENCORE 09/24/2018 [id number] / / [id number] Ascend Flex Standard Ptc Humeral Stem Shoulder 14 - [id number] Implanted:Qty: 1 on 07/30/2017 by Dylan Whitley DO at [facility] Left: Shoulder [employer] 09/09/2021 [id number] / [id number] / [id number] High Offset Ascend Flex Stb Humeral Head Onc 22 - [id number] Implanted:Qty: 1 on 07/30/2017 by Dylan Whitley DO at [facility] Left: Shoulder [employer] 02/09/2022 [id number] / [id number] / Insurance MEDICARE HMO REPLACEMENT [place] MEDIC[place] HMO REPLACEMENT MEDICARE HMO REPLACEMENT MEDICARE HMO REPLACEMENT [place] MEDICARE HMO REPLACEMENT MEDICARE HMO REPLACEMENT [place] MEDICARE HMO REPLACEMENT [place] MEDICARE HMO REPLACEMENT Advance Directives For more information, please contact: [phone] (9AM - 5PM [place], Thursday-Thursday) * Full Code (Presumed) (Latest Code Status on File) Date Activated Date Inactivated Comments 07/30/2017 1:31 PM 08/01/2017 3:39 PM * Full Code (Presumed) Date Activated Date Inactivated Comments 07/30/2017 6:17 AM 07/30/2017 1:31 PM Healthcare Agents on File Name Relationship Healthcare Agent Relationsva p Communication Stacey Lobo Friend .Primary Healt h Care Agent (Proxy form on file) Care Teams Pipe Production Worker Relationship Specialty Start Date End Date Wendi Dixon MD [address] [place] [address] [email or web address] PCP - General Internal Medicine 04/28/23 Additional Source Comments The information contained in this document represents components of the legal health record. It is not the complete legal health record.[facility]
--- OUTSIDE RECORDS SUMMARY | 2025-01-11 17:03 | XMS_ITS | Encounter Summary ---
Author Organization [facility] Address [address] [place] [address] Phone Care Team Providers Care Wire Drawer Name Role Phone Eliel Krishnan MD Primary Care Provider Wendi Joiner MD Primary Care Provider [phone] [phone] Encounter Details Date Type Department Care Team (Latest Contact Info) Description 03/31/2023 Ancillary Orders [address] [address] Ivy Rey MD [address] [place] [address] Orthopedics & Sports Medicine, [place] [address] [email or web address] Osteoarthritis of left knee, unspecified osteoarthritis [...] Primary documented in this encounter Care Teams Wire Drawer Relationship Specialty Start Date End Date Eliel Krishnan MD PCP - General 05/20/13 04/27/23 Wendi Dixon MD [address] [place] [address] [email or web address] PCP - General Internal Medicine 04/28/23 documented as of this encounter Additional Source Comments The information contained in this document represents components of the legal health record. It is not the complete legal health record.[facility]
--- OUTSIDE RECORDS SUMMARY | 2025-01-11 17:03 | XMS_ITS | Encounter Summary ---
Author Organization [facility] Address [address] [place] [address] Phone Care Team Providers Care Solids Control Technician Name Role Phone Eliel Krishnan MD Primary Care Provider Wendi Joiner MD Primary Care Provider [phone] -[phone] Encounter Details Date Type Department Care Team (Late st Contact Info) Description 03/10/2017 Ancillary Orders [facility] Orthopedics & Sports Medicine [address] [place] [address] Dylan Whitley DO [address] [place] [address] Orthopedics & Sports Medicine, [facility] [place] [address] [email or web address] Social History Tobacco Use Types Packs/Day Years [...] on filedocumented in this encounter Care Teams Solids Control Technician Relationship Specialty Start Date End Date Eliel Krishnan MD PCP - General 05/20/13 04/27/23 Wendi Dixon MD [address] [place] [address] [email or web address] PCP - General Internal Medicine 04/28/23 documented as of this encounter Additional Source Comments The information contained in this document represents components of the legal health record. It is not the complete legal health record.[facility]
--- OUTSIDE RECORDS SUMMARY | 2025-01-11 17:03 | XMS_ITS | Encounter Summary ---
Author Organization [facility] Address [address] [place] [address] Phone Care Team Providers Care Director Private Name Role Phone Eliel Krishnan MD Primary Care Provider Wendi Joiner MD Primary Care Provider +1 -[phone] Encounter Details Date Type Department Care Team (Late st Contact Info) Description 08/10/2017 Ancillary Orders [facility] Orthopedics & Sports Medicine [address] [place] [address] Tona Peralta PA-C [address] [place] [address] Orthopedics & Sports Medicine, [facility] [place] [address] [email or web address] Social History Tobacco Use [...] on filedocumented in this encounter Care Teams Director Private Relationship Specialty Start Date End Date Eliel Krishnan MD PCP - General 05/20/13 04/27/23 Wendi Dixon MD [address] [place] [address] [address] [place] [address] [phone] (work) [email or web address] PCP - General Internal Medicine 04/28/23 documented as of this encounter Additional Source Comments The information contained in this document represents components of the legal health record. It is not the complete legal health record.[facility]
--- OUTSIDE RECORDS SUMMARY | 2025-01-11 17:03 | XMS_ITS | Encounter Summary ---
Author Organization [facility] Address [address] [place] [address] Phone Care Team Providers Care Rubber Calender Helper Name Role Phone Eliel Krishnan MD Primary Care Provider Wendi Joiner MD Primary Care Provider [phone] -[phone] Encounter Details Date Type Department Care Team (Latest Contact Info) Description 01/20/2023 Ancillary Orders [address] [address] Ivy Rey MD [address] [place] [address] Orthopedics & Sports Medicine, [place] [address] [email or web address] Osteoarthritis of right knee, unspecified osteoarthritis type Social History Tobacco Use Types Packs/Day Years [...] Needle Placement Non-Spine Imaging Routine Osteoarthritis of right knee, unspecified osteoarthritis type 01/27/2023 10:33 AM EDT Scheduled Orders Name Type Priority Associated Diagnoses Orde r Schedule FL Guidance Needle Placement Non-Spine Imaging Routine Osteoarthritis of right knee, unspecified osteoarthritis type 1 Occurrences starting 01/20/2023 until 04/21/2023 documented as of this encounter Visit Diagnoses Diagnosis Osteoarthritis of right knee, unspecified osteoarthritis type documented in this encounter Care Teams Rubber Calender Helper Relationship Specialty Start Date End Date Eliel Krishnan MD PCP - General 05/20/13 04/27/23 Wendi Dixon MD [address] [place] [address] [email or web address] PCP - General Internal Medicine 04/28/23 documented as of this encounter Additional Source Comments The information contained in this document represents components of the legal health record. It is not the complete legal health record.[facility]
--- OUTSIDE RECORDS SUMMARY | 2025-01-11 17:03 | XMS_ITS | Encounter Summary ---
Author Organization [facility] Address [address] [place] [address] Phone Care Team Providers Care House Steward/Stewardess Name Role Phone Eliel Krishnan MD Primary Care Provider Wendi Joiner MD Primary Care Provider [phone] [phone] Encounter Details Date Type Department Care Team (Late st Contact Info) Description 07/30/2017 Procedure Pass [place] Admitting Dept - Virtual Department [address] [place] [address] Social History Tobacco Use Types Packs/Day Years [...] on filedocumented in this encounter Care Teams House Steward/Stewardess Relationship Specialty Start Date End Date Eliel Krishnan MD PCP - General 05/20/13 04/27/23 Wendi Dixon MD [address] [place] [phone] [email or web address] PCP - General Internal Medicine 04/28/23 documented as of this encounter Additional Source Comments The information contained in this document represents components of the legal health record. It is not the complete legal health record.[facility]
== END 2025-01-11 13:56 | disposition home or self-care (01) ==
LOC: HO.HOS 13:21
PROVIDERS: PCP Internal Medicine; Visit Provider Orthopaedic Surgery
DX: M25.562 Pain in left knee (principal); M72.2 Plantar fascial fibromatosis
CPT/HCPCS: 99213; G2211

== ENCOUNTER → 2025-01-11 13:22 | Outpatient (BNV) | payer MEDICARE, SELFPAY | PROVIDERS: Visit Provider Radiology Diagnostic Radiology | DX: M25.562 Pain in left knee (principal); Z96.652 Presence of left artificial knee joint | CPT/HCPCS: 73562 ==

== ENCOUNTER 2025-01-19 10:00 | Outpatient (AMB) | payer MEDICARE, SELFPAY ==
[2025-01-19 10:08] VITALS: BMI 24.3
--- NOTE | 2025-01-19 10:08 | A.OFFVIS_ITS ---
Vital Signs 01/19/25 10:08 Height 5 ft 5 in Weight 146 lb BMI 24.3 Intake Visit Reasons: New Pt-Plantar fascial fibromatosis Intake Note: Leighann is an 84 year old female who presents today as a new patient for an evaluation of her Bilateral Plantar Fascial. Patient states Pain is located on the medial aspcect of the arch on her feet, left is worse then the right. She has tried the aspirin spray and cream, Epson salts and cold packs. she states it relieves her pain for about an hour and then it returns. Patient has a corn on the right 2nd toe,she also has bilateral bunions and feels pain on the site. She has had no previous imaging. Allergies Influenza Virus Vaccines Allergy (Severe, Verified 01/19/25 10:09) severe flu symptoms Medication List - Last Reconciled 01/19/25 by Arnulfo Brown DPM acetaminophen 650 mg (2 x 325 mg) PO Q6H PRN 30 days amoxicillin 2,000 mg (4 x 500 mg) PO ONCE 1 day aspirin 325 mg PO BID 42 days cholecalciferol (vitamin D3) (Vitamin D3) 30 mcg PO BEDTIME docusate sodium 100 mg PO BID 14 days fish,bora,flax oils-om3,6,9no1 1,200 mg ([place] 3-6-9) 1 cap PO BEDTIME glucosamine-chondroitin 250-200 mg (Osteo Bi-Flex) 2 tabs PO DAILY magnesium oxide 400 mg PO BEDTIME omeprazole 20 mg PO DAILY@0500 PRN omeprazole 20 mg PO DAILY@0630 oxycodone 5 mg PO Q8H PRN simvastatin 20 mg PO BEDTIME tramadol 50 mg PO Q12H PRN walker Folding front wheeled walker HPI HPI New Pt-Plantar fascial fibromatosis: Details: The patient is an 84-year-old female past medical history of GERD and history of left TKA April 2024 presents for left foot pain. She states the pain is localized to her arch. The patient reports that the pain is worse in the morning and improves slightly with stretching exercises. 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 The patient has been using asper-cream and other topical treatments to manage the pain, with limited relief. Additionally, the patient has a corn on the top of her right 2nd toe, which was previously treated with an oral antibiotic due to concerns for an infection. Social History: - Employment: Works as a cashiers bussers food runners, standing for long periods, which exacerbates foot pain. [facility] Medical History Arthritis 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), 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) Diverticulosis Varicose vein of leg GERD (gastroesophageal reflux disease) Dyslipidemia Depression Surgical History Hx of bilateral cataract extraction History of arthroplasty of right shoulder Hx of meniscectomy of right knee Hx of prior ablation treatment History of right salpingo-oophorectomy Social History (Updated 01/11/25 @ 13:36 by Rosario Mejias) Household Members: None Housing: Homeless Are you a primary patient care technician instructor to a significant other at home: No Do you presently have visiting nurse or other home services: No Comment: aware of trip hazard and will remove Patient Tobacco Use Status: Never used Tobacco service: No Current occupational status: employed Current occupation: [employer]. 20H a week* Review of Systems Const All systems reviewed & are unremarkable except as noted in HPI and below Physical Exam Vital Signs: BMI result Body Mass Index 24.3 Extrem Other: *Bilateral Lower Extremity Focused Exam Vascular: DP/PT 2/4, CFT less than 3 seconds all digits, temperature gradient warm to cool. Mild left medial foot and medial ankle edema. Derm: No open wounds or signs of infection to the left foot. Right foot 2nd PIPJ has increased rubor. There is a healed scab overlying the PIPJ. No drainage or clinical signs of infection. No increased warmth. Neuro: Protective sensation grossly intact to bilateral lower extremities. MSK: Rigid right 2nd PIPJ flexion deformity. Moderate tenderness along the plantar medial fascia band at the level of the m edial cuneiform. Minimal pain along the plantar medial calcaneal tubercle. No pain to the navicular tuberosity. No pain along the PT tendon. No pain along the ankle range of motion. Office Procedures AMB Flexor Tendon/Plantar POD Tendon Injection Details of AMB Procedure: Procedure: Steroid injection Location: Left foot plantar fascia Medication: 1.5cc 0.5% bupivicaine, 1cc dexamethasone, 0.5cc kenalog? Description: The left foot was prepped using alcohol. A steroid injection was administered using sterile technique. The site was dressed using a band-aid. Post-procedure Instructions: The patient was instructed to apply ice to the injection site. The patient was advised to call the office if there are signs or symptoms of worsening pain, infection, or steroid flare. Tendon Injection POD1: - Plantar Fascia Injection All charges added?: Procedure code (CPT) selection complete Office Meds triamcinolone acetonide 40 mg/mL suspension for injection Performing Provider: Arnulfo Brown DPM Performing Location: [facility] Administered by: Arnulfo Brown DPM on 01/19/25 10:48 Dose Route Admin Location Dispensed Lot Number Expiration Date [facility] Cement Mason Apprentice 20 mg Tendon Sheath Inj. 1 mL [id number] [employer] Total Dispensed Waste 1 mL 50 % dexamethasone sodium phosphate 4 mg/mL injection solution Performing Provider: Arnulfo Brown DPM Performing Location: [facility] Administered by: Arnulfo Brown DPM on 01/19/25 10:48 Dose Route Admin Location Dispensed Lot Number Expiration Date [facility] Cement Mason Apprentice 4 mg Tendon Sheath Inj. 1 mL [id number] [employer] Total Dispensed Waste 1 mL 0 % bupivacaine (PF) 0.5 % (5 mg/mL) injection solution Performing Provider: Arnulfo Brown DPM Performing Location: [facility] Administered by: Arnulfo Brown DPM on 01/19/25 10:48 Dose Route Admin Location Dispensed Lot Number Expiration Date [facility] Cement Mason Apprentice 2 mL intra-articular 10 mL [id number] [facility] Total Dispensed Waste 10 mL 80 % Assessment & Plan Assessment & Plan (1) Plantar fasciitis, left: Code(s): M72.2 - Plantar fascial fibromatosis Category: Medical Plan: * Discussed etiology of the patient's foot pain. Differential diagnosis includes plantar fasciitis, posterior tibial tendonitis, neuritis. The patient has increased her activity and changed her shoe wear. Given her history and exam findings, her most likely diagnosis is plantar fasciitis. * Patient educated on the nature and etiology of plantar fasciitis, which involves inflammation and microtearing of the plantar fascia due to repetitive stress and overuse. * The patient was counseled on conservative management of plantar fasciitis, including daily stretching exercises targeting the plantar fascia and Achilles tendon, use of supportive and properly fitting footwear, and consideration of custom or prefabricated orthotics to improve foot biomechanics. A handout was given for stretching exercises. * She was given a left plantar fascia cortisone injection. There was localized redness of the area which was monitored. No itchiness, or progression of the redness was noted. There was no systemic symptoms. The patient states that she does occasionally have benign/transient local responses. She states she typically takes Benadryl at home if she does notice any puffiness that occurs. She was advised that it is safe to take Benadryl at home if she does notice any symptoms however she is recommended to call the office and discuss her symptoms and we will advise her from there. * Instructed the patient on at home stretching and range of motion exercises including calf-stretches, frozen water bottle therapy, band-therapy. * Recommended supportive shoe-wear with arch-supports to avoid increased loading on the patient's plantar fascia band. * She was instructed to alternate sitting and standing for work which may help her symptoms. * Follow up in 2 weeks. May require physical therapy referral. Orders: Orders AMB Flexor Tendon / Plantar Fascia Injection Today M72.2 - Plantar fascial fibromatosis Coding Level of Care Code New Pt Level 3 (30915) Diagnoses Plantar fasciitis, left M72.2 CPT Codes Tendon Injection - Tendon Injection POD1: - Plantar Fascia Injection ([id number]) Time Spent (min) 32
--- OUTSIDE RECORDS SUMMARY | 2025-01-19 12:04 | XMS_ITS | Encounter Summary ---
Author Organization [facility] Address [address] [facility] [address] [place] [address] Phone Care Team Providers Care Dominatrix Name Role Phone Eliel Krishnan MD Primary Care Provider Wendi Joiner MD Primary Care Provider [phone] [phone] Encounter Details Date Type Department Care Team (Late st Contact Info) Description 06/17/2017 Procedure Pass [facility], Ct Scan - [address] [address] Social History Tobacco Use Types Packs/Day Years [...] on filedocumented in this encounter Care Teams Dominatrix Relationship Specialty Start Date End Date Eliel Krishnan MD PCP - General 05/20/13 04/27/23 Wendi Dixon MD [address] [place] [address] [email or web address] PCP - General Internal Medicine 04/28/23 documented as of this encounter Additional Source Comments The information contained in this document represents components of the legal health record. It is not the complete legal health record.[facility]
--- OUTSIDE RECORDS SUMMARY | 2025-01-19 12:04 | XMS_ITS | Encounter Summary ---
Author Organization [facility] Address [address] [facility] [address] [place] [address] Phone Care Team Providers Care Echo Vasc Tech Name Role Phone Eliel Krishnan MD Primary Care Provider Wendi Joiner MD Primary Care Provider [phone] Encounter Details Date Type Department Care Team (Late st Contact Info) Description 03/10/2017 Ancillary Orders [address] [address] Dylan Whitley DO [address] [place] [address] Orthopedics & Sports Medicine, [place] [address] [email or web address] Left shoulder pain, unspecified chronicity [...] chronicity documented in this encounter Care Teams Echo Vasc Tech Relationship Specialty Start Date End Date Eliel Krishnan MD PCP - General 05/20/13 04/27/23 Wendi Dixon MD [address] [place] [address] [email or web address] PCP - General Internal Medicine 04/28/23 documented as of this encounter Additional Source Comments The information contained in this document represents components of the legal health record. It is not the complete legal health record.[facility]
--- OUTSIDE RECORDS SUMMARY | 2025-01-19 12:04 | XMS_ITS | Encounter Summary ---
Author Organization [facility] Address [address] [facility] [address] [place] [address] Phone Care Team Providers Care Furnace Builder Name Role Phone Eliel Krishnan MD Primary Care Provider Wendi Joiner MD Primary Care Provider [phone] [phone] Encounter Details Date Type Department Care Team (Late st Contact Info) Description 07/30/2017 Procedure Pass OR Admitting Dept - Virtual Department [address] [place] [address] Social History Tobacco Use Types Packs/Day Years [...] on filedocumented in this encounter Care Teams Furnace Builder Relationship Specialty Start Date End Date Eliel Krishnan MD PCP - General 05/20/13 04/27/23 Wendi Dixon MD [address] [place] [address] [email or web address] PCP - General Internal Medicine 04/28/23 documented as of this encounter Additional Source Comments The information contained in this document represents components of the legal health record. It is not the complete legal health record.[facility]
--- OUTSIDE RECORDS SUMMARY | 2025-01-19 12:04 | XMS_ITS | Clinical Summary ---
Author Organization [facility] Address [address] [facility] [address] [place] [address] Phone Care Team Providers Care Projects Manager Name Role Phone Wendi Dixon MD Primary Care Provider +1 [phone] Allergies Active Allergy Reactions Criticality Noted Date [...] this topic Medical Devices Implanted Type Area Plastics Fabrication Supervisor Device Identifier Shelf Expiration Date Model / Serial / Lot Aequalis Perform Glenoid Cortiloc M35 Shoulder 02 Nc - [id number] Implanted:Qty: 1 on 07/30/2017 by Dylan Whitley DO at [facility] Left: Shoulder [employer] 04/03/2021 [id number] / [id number] / Cement Bone 40gr [employer] - [id number] Implanted:Qty: 1 on 07/30/2017 by Dylan Whitley DO at [facility] Left: Shoulder [employer]NCORE 09/24/2018 [id number] / / [id number] Ascend Flex Standard Ptc Humeral Stem Shoulder 14 - [id number] Implanted:Qty: 1 on 07/30/2017 by Dylan Whitley DO at [facility] Left: Shoulder [employer] 09/09/2021 [id number] / [id number] / [id number] High Offset Ascend Flex Stb Humeral Head Onc 22 - [id number] Implanted:Qty: 1 on 07/30/2017 by Dylan Whitley DO at [facility] Left: Shoulder [employer] 02/09/2022 [id number] / [id number] / Insurance MEDICARE HMO REPLACEMENT [place] MEDICARE HMO REPLACEMENT MEDICARE HMO REPLACEMENT MEDICARE HMO REPLACEMENT [place] MEDICARE HMO REPLACEMENT MEDICARE HMO REPLACEMENT [place] MEDICARE HMO REPLACEMENT [place] MEDIC[place] HMO REPLACEMENT Advance Directives For more information, please contact: [phone] (9AM - 5PM [place], Thursday-Thursday) * Full Code (Presumed) (Latest Code Status on File) Date Activated Date Inactivated Comments 07/30/2017 1:31 PM 08/01/2017 3:39 PM * Full Code (Presumed) Date Activated Date Inactivated Comments 07/30/2017 6:17 AM 07/30/2017 1:31 PM Healthcare Agents on File Name Relationship Healthcare Agent Relationsmd p Communication Stacey Lobo Friend .Primary Healt h Care Agent (Proxy form on file) Care Teams Projects Manager Relationship Specialty Start Date End Date Wendi Dixon MD [address] [place] [address] [email or web address] PCP - General Internal Medicine 04/28/23 Additional Source Comments The information contained in this document represents components of the legal health record. It is not the complete legal health record.[facility]
--- OUTSIDE RECORDS SUMMARY | 2025-01-19 12:04 | XMS_ITS | Encounter Summary ---
Author Organization [facility] Address [address] [facility] [address] [place] [address] Phone Care Team Providers Care Rn Behavioral Health Name Role Phone Eliel Krishnan MD Primary Care Provider Wendi Joiner MD Primary Care Provider [phone] [phone] Encounter Details Date Type Department Care Team (Latest Contact Info) Description 03/31/2023 Ancillary Orders [address] [place] [address] [address] Ivy Rey MD [address] [place] [address] Orthopedics & Sports Medicine, [place] [address] [email or web address] Osteoarthritis of left knee, unspecified osteoarthritis [...] Primary documented in this encounter Care Teams Rn Behavioral Health Relationship Specialty Start Date End Date Eliel Krishnan MD PCP - General 05/20/13 04/27/23 Wendi Dixon MD [address] [place] [address] [email or web address] PCP - General Internal Medicine 04/28/23 documented as of this encounter Additional Source Comments The information contained in this document represents components of the legal health record. It is not the complete legal health record.[facility]
--- OUTSIDE RECORDS SUMMARY | 2025-01-19 12:04 | XMS_ITS | Encounter Summary ---
Author Organization [facility] Address [address] [facility] [address] [place] [address] Phone Care Team Providers Care Oracle Reports Developer Name Role Phone Eliel Krishnan MD Primary Care Provider Wendi Joiner MD Primary Care Provider [phone] [phone] Encounter Details Date Type Department Care Team (Latest Contact Info) Description 01/20/2023 Ancillary Orders [address] [address] Ivy Rey MD [address] [place] [address] Orthopedics & Sports Medicine, [place] [address] [email or web address] Osteoarthritis of right knee, unspecified osteoarthritis type [...] type documented in this encounter Care Teams Oracle Reports Developer Relationship Specialty Start Date End Date Eliel Krishnan MD PCP - General 05/20/13 04/27/23 Wendi Dixon MD [address] [place] [address] [email or web address] PCP - General Internal Medicine 04/28/23 documented as of this encounter Additional Source Comments The information contained in this document represents components of the legal health record. It is not the complete legal health record.[facility]
--- OUTSIDE RECORDS SUMMARY | 2025-01-19 12:04 | XMS_ITS | Encounter Summary ---
Author Organization [facility] Address [address] [facility] [address] [place] [address] Phone Care Team Providers Care Snow Shoveler Name Role Phone Eliel Krishnan MD Primary Care Provider Wendi Joiner MD Primary Care Provider [phone] [phone] Encounter Details Date Type Department Care Team (Late st Contact Info) Description 08/10/2017 Ancillary Orders [address] [address] Tona Peralta PA-C [address] [place] [address] Orthopedics & Sports Medicine, [place], [place] [id number] [email or web address] Left shoulder pain, unspecified chronicity [...] chronicity documented in this encounter Care Teams Snow Shoveler Relationship Specialty Start Date End Date Eliel Krishnan MD PCP - General 05/20/13 04/27/23 Wendi Dixon MD [address] [place] [address] [email or web address] PCP - General Internal Medicine 04/28/23 documented as of this encounter Additional Source Comments The information contained in this document represents components of the legal health record. It is not the complete legal health record.[facility]
--- OUTSIDE RECORDS SUMMARY | 2025-01-19 12:04 | XMS_ITS | Encounter Summary ---
Author Organization [facility] Address [address] [facility] [address] [place] [address] Phone Care Team Providers Care Optometrist Owner Name Role Phone Eliel Krishnan MD Primary Care Provider Wendi Joiner MD Primary Care Provider [phone] [phone] Encounter Details Date Type Department Care Team (Late st Contact Info) Description 03/10/2017 Ancillary Orders [facility] Orthopedics & Sports Medicine [address] [place] [address] Dylan Whitley DO [address] [place] [address] Orthopedics & Sports Medicine, [facility] [place] [address] [email or web address] Social History Tobacco Use Types Packs/Day Years [...] on filedocumented in this encounter Care Teams Optometrist Owner Relationship Specialty Start Date End Date Eliel Krishnan MD PCP - General 05/20/13 04/27/23 Wendi Dixon MD [address] [place] [address] [email or web address] PCP - General Internal Medicine 04/28/23 documented as of this encounter Additional Source Comments The information contained in this document represents components of the legal health record. It is not the complete legal health record.[facility]
--- OUTSIDE RECORDS SUMMARY | 2025-01-19 12:04 | XMS_ITS | Encounter Summary ---
Author Organization [facility] Address [address] [facility] [address] [place] [address] Phone Care Team Providers Care Bed Control Specialist Name Role Phone Wendi Dixon MD Primary Care Provider [phone] [phone] Encounter Details Date Type Department Care Team (Late st Contact Info) Description 05/23/2024 Procedure Pass OR Admitting Dept - Virtual Department 30 [place] [address] Social History Tobacco Use Types Packs/Day Years [...] on filedocumented in this encounter Care Teams Bed Control Specialist Relationship Specialty Start Date End Date Wendi Dixon MD [address] [place] [address] [address] [place] [address] [email or web address] PCP - General Internal Medicine 04/28/23 documented as of this encounter Additional Source Comments The information contained in this document represents components of the legal health record. It is not the complete legal health record.[facility]
--- OUTSIDE RECORDS SUMMARY | 2025-01-19 12:04 | XMS_ITS | Encounter Summary ---
Author Organization [facility] Address [address] [facility] [address] [place] [address] Phone Care Team Providers Care Cloth Grader Name Role Phone Eliel Krishnan MD Primary Care Provider Wendi Joiner MD Primary Care Provider [phone] [phone] Encounter Details Date Type Department Care Team (Late st Contact Info) Description 08/10/2017 Ancillary Orders [facility] Orthopedics & Sports Medicine [address] [place] [address] Tona Peralta PA-C [address] [place] [address] Orthopedics & Sports Medicine, [facility] [place] [address] [email or web address] Social History Tobacco Use Types Packs/Day Years [...] on filedocumented in this encounter Care Teams Cloth Grader Relationship Specialty Start Date End Date Eliel Krishnan MD PCP - General 05/20/13 04/27/23 Wendi Dixon MD [address] [place] [address] [address] [place] [address] [phone] (work) [email or web address] PCP - General Internal Medicine 04/28/23 documented as of this encounter Additional Source Comments The information contained in this document represents components of the legal health record. It is not the complete legal health record.[facility]
--- OUTSIDE RECORDS SUMMARY | 2025-01-19 12:04 | XMS_ITS | Encounter Summary ---
Author Organization [facility] Address [address] [facility] [address] [place] [address] Phone Care Team Providers Care Highway Safety Engineer Name Role Phone lEiel Krishnan MD Primary Care Provider Wendi Joiner MD Primary Care Provider [phone] [phone] Encounter Details Date Type Department Care Team (Late st Contact Info) Description 01/20/2023 Ancillary Orders [facility] Orthopedics & Sports Medicine [address] [place] [address] Ivy Rey MD [address] [place] [address] Orthopedics & Sports Medicine, [place] [address] [email or web address] Social History Tobacco Use Types Packs/Day Years [...] on filedocumented in this encounter Care Teams Highway Safety Engineer Relationship Specialty Start Date End Date Eliel Krishnan MD PCP - General 05/20/13 04/27/23 Wendi Dixon MD [address] [place] [address] [email or web address] PCP - General Internal Medicine 04/28/23 documented as of this encounter Additional Source Comments The information contained in this document represents components of the legal health record. It is not the complete legal health record.[facility]
--- OUTSIDE RECORDS SUMMARY | 2025-01-19 12:04 | XMS_ITS | Encounter Summary ---
Author Organization [facility] Address [address] [facility] [address] [place] [address] Phone Care Team Providers Care Oim Architect Name Role Phone Eliel Krishnan MD Primary Care Provider Wendi Joiner MD Primary Care Provider [phone] [phone] Encounter Details Date Type Department Care Team (Latest Contact Info) Description 04/24/2023 Ancillary Orders [address] [address] Ivy Rey MD [address] [place] [address] Orthopedics & Sports Medicine, [place] [address] [email or web address] Osteoarthritis of [...] Primary documented in this encounter Care Teams Oim Architect Relationship Specialty Start Date End Date Eliel Krishnan MD PCP - General 05/20/13 04/27/23 Wendi Dixon MD [address] [place] [address] [email or web address] PCP - General Internal Medicine 04/28/23 documented as of this encounter Additional Source Comments The information contained in this document represents components of the legal health record. It is not the complete legal health record.[facility]
== END 2025-01-19 10:35 | disposition home or self-care (01) ==
LOC: HO.HPODS 10:01
PROVIDERS: Visit Provider Student in an Organized Health Care Education/Training Program
DX: M72.2 Plantar fascial fibromatosis (principal)
CPT/HCPCS: 20550; 99203

== ENCOUNTER → 2025-01-19 10:00 | Outpatient (BNVA) | payer MEDICARE, SELFPAY | PROVIDERS: Visit Provider Student in an Organized Health Care Education/Training Program | DX: M72.2 Plantar fascial fibromatosis (principal) | CPT/HCPCS: 20550; 99202; J0665; J1100; J3301 ==

== ENCOUNTER 2025-03-01 15:06 | Outpatient (AMB) | payer MEDICARE, SELFPAY ==
[2025-03-01 15:19] VITALS: BMI 24.3
--- NOTE | 2025-03-01 15:19 | A.OFFVIS_ITS ---
Vital Signs 03/01/25 15:19 Height 5 ft 5 in Weight 146 lb BMI 24.3 Intake Visit Reasons: fu plantar fascial fibromatosis Intake Note: Leighann is an 84 year old female who presents today for a follow up on her plantar fascial fibromatosis. During her last visit a steroid injection was administered and she was advised the use of supportive shoe wear. Patient reports she has seen improvement since her last visit and she has concerns of swelling on her right 2nd toe. Allergies Influenza Virus Vaccines Allergy (Severe, Verified 03/01/25 15:23) severe flu symptoms HPI HPI fu plantar fascial fibromatosis: Details: The patient is an 84-year-old female past medical history of GERD and history of left TKA April 2024 returns for left foot pain s/p cortisone injection, and for new complaints of right foot pain. The injection had helped for several weeks however she noticed the pain started returning last week. She has been doing stretching exercises, and recently purchased HOKA shoes. Additionally, the patient noted her right 2nd toe infection had returned after she wore dress shoes. She took her remaining two amoxicillin tablets she had from a previous tooth infection and noted it improved. Social History: - Employment: Works as a cafeteria cashier, standing for long periods, which exacerbates foot pain. 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) Diverticulosis Varicose vein of leg GERD (gastroesophageal reflux disease) Dyslipidemia Depression Surgical History Hx of bilateral cataract extraction History of arthroplasty of right shoulder Hx of meniscectomy of right knee Hx of prior ablation treatment History of right salpingo-oophorectomy Social History (Updated 01/11/25 @ 13:36 by Rosario Mejias) Household Members: None Housing: Homeless Are you a primary adult live in caregiver to a significant other at home: No Do you presently have visiting nurse or other home services: No Comment: aware of trip hazard and will remove Patient Tobacco Use Status: Never used Tobacco service: No Current occupational status: employed 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 Mild right lower extremity edema. Derm: Right foot 2nd PIPJ with skin tear, erythema, warmth, no drainage or open wounds or drainage. Neuro: Protective sensation grossly intact to bilateral lower extremities. MSK: Rigid right 2nd PIPJ flexion deformity. Left foot mild tenderness along the plantar medial fascia band at the level of the medial cuneiform. Minimal pain along the plantar medial calcaneal tubercle. No pain to the navicular tuberosity. No pain along the PT tendon. No pain along the ankle range of motion. Assessment & Plan Assessment & Plan (1) Plantar fasciitis, left: Code(s): M72.2 - Plantar fascial fibromatosis Category: Medical Plan: * Discussed etiology of the patient's foot pain. Differential diagnosis includes plantar fasciitis, posterior tibial tendonitis, neuritis. The patient has increased her activity and changed her shoe wear. Given her history and exam findings, her most likely diagnosis is plantar fasciitis. * Continue stretching exercises * Continue supportive/HOKA shoe-wear * An LA pad was fabricated and dispensed to the patient. * Instructed to use a dr benavidez's gel cushion. * May refer to physical therapy next visit (2) Cellulitis of toe of right foot: Code(s): L03.031 - Cellulitis of right toe Category: Medical Plan: * Rx Augmentin BID x 5 days. (3) Hammertoe of right foot: Code(s): M20.41 - Other hammer toe(s) (acquired), right foot Category: Medical Plan: * Rx right foot x-ray * Discussed treatment options including off-loading pad versus surgical correction of hammertoe. Due to recurrent infections from dorsal pressure of the PIPJ, the patient will likely require surgical correction of the digit in the future (4) Right leg swelling: Code(s): M79.89 - Other specified soft tissue disorders Category: Medical Plan: * applied elmer bandage * will monitor. no signs for DVT at this time. * Patient states she will see her PCP regarding her right knee. Orders: Orders XR foot RT min 3V Today L03.031 - Cellulitis of right toe, M20.41 - Other hammer toe(s) (acquired), right foot AMB Podiatry Dressing Today M72.2 - Plantar fascial fibromatosis Medications: New amoxicillin-pot clavulanate 875-125 mg 1 tab PO BID 10 tabs 0RF cellulitis L03.031 - Cellulitis of right toe Coding Level of Care Code Est Pt Level 3 (11310) Diagnoses Plantar fasciitis, left M72.2 Cellulitis of toe of right foot L03.031 Hammertoe of right foot M20.41 Right leg swelling M79.89 Time Spent (min) 30
--- OUTSIDE RECORDS SUMMARY | 2025-03-01 18:07 | XMS_ITS | Encounter Summary ---
Author Organization [facility] Address [address] [facility] [address] [place] [address] Phone Care Team Providers Care Senior Manufacturing Test Engineer Name Role Phone Eliel Krishnan MD Primary Care Provider Wendi Joiner MD Primary Care Provider [phone] [phone] Encounter Details Date Type Department Care Team (Late st Contact Info) Description 03/10/2017 Ancillary Orders [address] [address] Dylan Whitley DO [address] [place] [address] Orthopedics & Sports Medicine, [place] [address] [email or web address] Left shoulder pain, unspecified chronicity Social History [...] chronicity documented in this encounter Care Teams Senior Manufacturing Test Engineer Relationship Specialty Start Date End Date Eliel Krishnan MD PCP - General 05/20/13 04/27/23 Wendi Dixon MD [address] [place] [address] [email or web address] PCP - General Internal Medicine 04/28/23 documented as of this encounter Additional Source Comments The information contained in this document represents components of the legal health record. It is not the complete legal health record.[facility]
--- OUTSIDE RECORDS SUMMARY | 2025-03-01 18:07 | XMS_ITS | Encounter Summary ---
Author Organization [facility] Address [address] [facility] [address] [place] [address] Phone Care Team Providers Care Oracle Erp Architect Name Role Phone Eliel Krishnan MD Primary Care Provider Wendi Joiner MD Primary Care Provider [phone] [phone] Encounter Details Date Type Department Care Team (Late st Contact Info) Description 07/30/2017 Procedure Pass OR Admitting Dept - Virtual Department 30 [place] [address] Social History Tobacco Use Types Packs/Day Years [...] on filedocumented in this encounter Care Teams Oracle Erp Architect Relationship Specialty Start Date End Date Eliel Krishnan MD PCP - General 05/20/13 04/27/23 Wendi Dixon MD [address] [place] [address] [email or web address] PCP - General Internal Medicine 04/28/23 documented as of this encounter Additional Source Comments The information contained in this document represents components of the legal health record. It is not the complete legal health record.[facility]
--- OUTSIDE RECORDS SUMMARY | 2025-03-01 18:07 | XMS_ITS | Encounter Summary ---
Author Organization [facility] Address [address] [facility] [address] [place] [address] Phone Care Team Providers Care Cooler Tender Name Role Phone Eliel Krishnan MD Primary Care Provider Wendi Joiner MD Primary Care Provider [phone] [phone] Encounter Details Date Type Department Care Team (Late st Contact Info) Description 06/17/2017 Procedure Pass [facility], Ct Scan - [address] [address] Social History Tobacco Use Types Packs/Day Years [...] on filedocumented in this encounter Care Teams Cooler Tender Relationship Specialty Start Date End Date Eliel Krishnan MD PCP - General 05/20/13 04/27/23 Wendi Dixon MD [address] [place] [address] [email or web address] PCP - General Internal Medicine 04/28/23 documented as of this encounter Additional Source Comments The information contained in this document represents components of the legal health record. It is not the complete legal health record.[facility]
--- OUTSIDE RECORDS SUMMARY | 2025-03-01 18:07 | XMS_ITS | Encounter Summary ---
Author Organization [facility] Address [address] [facility] [address] [place] [address] Phone Care Team Providers Care Nitrate Operator Name Role Phone Eliel Krishnan MD Primary Care Provider Wendi Joiner MD Primary Care Provider [phone] [phone] Encounter Details Date Type Department Care Team (Late st Contact Info) Description 03/10/2017 Ancillary Orders [facility] Orthopedics & Sports Medicine [address] [place] [address] Dylan Whitley DO [address] [place] [address] Orthopedics & Sports Medicine, [facility] [place] [address] [email or web address] Social History Tobacco Use Types Packs/Day Years [...] on filedocumented in this encounter Care Teams Nitrate Operator Relationship Specialty Start Date End Date Eliel Krishnan MD PCP - General 05/20/13 04/27/23 Wendi Dixon MD [address] [place] [address] [email or web address] PCP - General Internal Medicine 04/28/23 documented as of this encounter Additional Source Comments The information contained in this document represents components of the legal health record. It is not the complete legal health record.[facility]
--- OUTSIDE RECORDS SUMMARY | 2025-03-01 18:07 | XMS_ITS | Encounter Summary ---
Author Organization [facility] Address [address] [facility] [address] [place] [address] Phone Care Team Providers Care Semiconductors Wafer Breaker Name Role Phone Eliel Krishnan MD Primary Care Provider Wendi Joiner MD Primary Care Provider [phone] Encounter Details Date Type Department Care Team (Late st Contact Info) Description 01/20/2023 Ancillary Orders [facility] Orthopedics & Sports Medicine [address] [place] [address] Ivy Rey MD [address] [place] [address] Orthopedics & Sports Medicine, [facility] [place] [address] [email or web address] Social History Tobacco Use Types Packs/Day Years [...] on filedocumented in this encounter Care Teams Semiconductors Wafer Breaker Relationship Specialty Start Date End Date Eliel Krishnan MD PCP - General 05/20/13 04/27/23 Wendi Dixon MD [address] [place] [address] [email or web address] PCP - General Internal Medicine 04/28/23 documented as of this encounter Additional Source Comments The information contained in this document represents components of the legal health record. It is not the complete legal health record.[facility]
--- OUTSIDE RECORDS SUMMARY | 2025-03-01 18:07 | XMS_ITS | Encounter Summary ---
Author Organization [facility] Address [address] [facility] [address] [place] [address] Phone Care Team Providers Care Sample Sewer Name Role Phone Eliel Krishnan MD Primary Care Provider Wendi Joiner MD Primary Care Provider [phone] Encounter Details Date Type Department Care Team (Latest Contact Info) Description 01/20/2023 Ancillary Orders [address] [address] Ivy Rey MD [address] [place] [address] Orthopedics & Sports Medicine, [place] [address] [email or web address] Osteoarthritis of right knee, unspecified osteoarthritis [...] type documented in this encounter Care Teams Sample Sewer Relationship Specialty Start Date End Date Eliel Krishnan MD PCP - General 05/20/13 04/27/23 Wendi Dixon MD [address] [place] [address] [email or web address] PCP - General Internal Medicine 04/28/23 documented as of this encounter Additional Source Comments The information contained in this document represents components of the legal health record. It is not the complete legal health record.[facility]
--- OUTSIDE RECORDS SUMMARY | 2025-03-01 18:08 | XMS_ITS | Encounter Summary ---
Author Organization [facility] Address [address] [facility] [address] [place] [address] Phone Care Team Providers Care Electro Mechanical Engineer Name Role Phone Eliel Krishnan MD Primary Care Provider Wendi Joiner MD Primary Care Provider [phone] Encounter Details Date Type Department Care Team (Latest Contact Info) Description 04/24/2023 Ancillary Orders [address] [address] Ivy Rey MD [address] [place] [address] Orthopedics & Sports Medicine, [place] [address] [email or web address] Osteoarthritis of left [...] Primary documented in this encounter Care Teams Electro Mechanical Engineer Relationship Specialty Start Date End Date Eliel Krishnan MD PCP - General 05/20/13 04/27/23 Wendi Dixon MD [address] [place] [address] [email or web address] PCP - General Internal Medicine 04/28/23 documented as of this encounter Additional Source Comments The information contained in this document represents components of the legal health record. It is not the complete legal health record.[facility]
--- OUTSIDE RECORDS SUMMARY | 2025-03-01 18:08 | XMS_ITS | Encounter Summary ---
Author Organization [facility] Address [address] [facility] [address] [place] [address] Phone Care Team Providers Care Road Contractor Name Role Phone Eliel Krishnan MD Primary Care Provider Wendi Joiner MD Primary Care Provider [phone] Encounter Details Date Type Department Care Team (Late st Contact Info) Description 08/10/2017 Ancillary Orders [address] [address] Tona Peralta PA-C [address] [place] [address] Orthopedics & Sports Medicine, [place], [place] [id number] [email or web address] Left shoulder pain, unspecified chronicity Social History [...] chronicity documented in this encounter Care Teams Road Contractor Relationship Specialty Start Date End Date Eliel Krishnan MD PCP - General 05/20/13 04/27/23 Wendi Dixon MD [address] [place] [address] [email or web address] PCP - General Internal Medicine 04/28/23 documented as of this encounter Additional Source Comments The information contained in this document represents components of the legal health record. It is not the complete legal health record.[facility]
--- OUTSIDE RECORDS SUMMARY | 2025-03-01 18:08 | XMS_ITS | Encounter Summary ---
Author Organization [facility] Address [address] [facility] [address] [place] [address] Phone Care Team Providers Care Senior Linux Systems Administrator Name Role Phone Wendi Dixon MD Primary Care Provider [phone] Encounter Details Date Type Department Care Team (Late st Contact Info) Description 05/23/2024 Procedure Pass OR Admitting Dept - Virtual Department [address] [place] [address] Social History Tobacco Use Types Packs/Day Years [...] on filedocumented in this encounter Care Teams Senior Linux Systems Administrator Relationship Specialty Start Date End Date Wendi Dixon MD [address] [place] [address] [address] [place] [address] [email or web address] PCP - General Internal Medicine 04/28/23 documented as of this encounter Additional Source Comments The information contained in this document represents components of the legal health record. It is not the complete legal health record.[facility]
--- OUTSIDE RECORDS SUMMARY | 2025-03-01 18:08 | XMS_ITS | Clinical Summary ---
Author Organization [facility] it Address [id number] [place] [id number] Care Team Providers Care Machine Engraver Name Role Phone Wendi Dxion MD Primary Care Provider [phone] Medications omeprazole (PriLOSEC) [address] capsule Take 1 capsule (20 mg total) by mouth 1 (one) time each day. Do not crush or chew. 90 each 1 5 Active omeprazole (PriLOSEC) [address] capsule Take 1 capsule (20 mg total) by mouth 1 (one) time each day. Do not crush or chew. 90 each 1 5 02/02/20 25 Discontinu ed(Entered in Error) Social History Tobacco Use Types Packs/Day Years Used Date Smoking Tobacco: Never Assessed Comments Unknown Sex and Gender Information Value Date Recorded Sex Assigned at Not on file Legal Sex Female 11:07 AM EDT Gender Identity Not on file Sexual Orientation Not on file Plan of Treatment Upcoming Encounters Date Type Department Care Team ([facility] st Contact Info) Description 07/18/2025 11:00 AM EDT Office Visit Gastroenterology - [address] [id number] Sulma Wood NP [address] [facility] [address] [place] [address] Health Maintenance Due Date Last Done Comments DTaP,Tdap,and Td Vaccines (1 - Tdap) 08/07/1959 Pneumococcal Vaccine: 50+ Ye ars (1 of 1 - PCV) 08/07/1989 Zoster Vaccines (1 of 2) 08/07/1989 RSV Immunization Adult Patie nts (1 - 1-dose 75+ series) 08/07/2014 Falls Risk Assessment 11/27/2023 Medicare Annual Wellness Visit 11/27/2023 Osteoporosis Screening (Bone Density Screening) 11/27/2023 Social Influencers of Health Screening 11/27/2023 Depression Screening 04/27/2024 COVID-19 Vaccine (1 - 2023-2 5 season) 2024 Influenza Vaccine (#1) 2024 HIB Vaccines Aged Out No longer eligi ble based on patient's age to complete this topic HPV Vaccines Aged Out No longer eligi ble based on patient's age to complete this topic Hepatitis A Vaccines Aged Out No long er eligible based on patient's age to complete this topic Hepatitis B Vaccines Aged Out No long er eligible based on patient's age to complete this topic IPV Vaccines Aged Out No longer eligi ble based on patient's age to complete this topic MMR Vaccines Aged Out No longer eligi ble based on patient's age to complete this topic Meningococcal ACWY Vaccine Aged Out N o longer eligible based on patient's age to complete this topic Meningococcal B Vaccine Aged Out No l onger eligible based on patient's age to complete this topic RSV Immunization Patients Un javon 20 months Aged Out No longer eligible b ased on patient's age to complete this topic Varicella Vaccines Aged Out No longer eligible based on patient's age to complete this topic Insurance MEDICARE [place]ICA[place] - [place] Care Teams Machine Engraver Relationship Specialty Start Date End Date Wendi Dixon MD [address] [address] PCP - General Internal Medicine 01/25/25
--- OUTSIDE RECORDS SUMMARY | 2025-03-01 18:08 | XMS_ITS | Encounter Summary ---
Author Organization [facility] Address [address] [facility] [address] [place] [address] Phone Care Team Providers Care Nurse Emergency Name Role Phone Eliel Krishnan MD Primary Care Provider Wendi Joiner MD Primary Care Provider [phone] Encounter Details Date Type Department Care Team (Latest Contact Info) Description 03/31/2023 Ancillary Orders [address] [address] Ivy Rey MD [address] [place] [address] Orthopedics & Sports Medicine, [place] [address] [email or web address] Osteoarthritis of left knee, unspecified osteoarthritis [...] Primary documented in this encounter Care Teams Nurse Emergency Relationship Specialty Start Date End Date Eliel Krishnan MD PCP - General 05/20/13 04/27/23 Wendi Dixon MD [address] [place] [address] [email or web address] PCP - General Internal Medicine 04/28/23 documented as of this encounter Additional Source Comments The information contained in this document represents components of the legal health record. It is not the complete legal health record.[facility]
--- OUTSIDE RECORDS SUMMARY | 2025-03-01 18:08 | XMS_ITS | Encounter Summary ---
Author Organization [facility] Address [address] [facility] [address] [place] [address] Phone Care Team Providers Care Production Supervisor Trainee Name Role Phone Eliel Krishnan MD Primary Care Provider Wendi Joiner MD Primary Care Provider [phone] Encounter Details Date Type Department Care Team (Late st Contact Info) Description 08/10/2017 Ancillary Orders [facility] Orthopedics & Sports Medicine [address] [place] [address] Tona Peralta PA-C [address] [place] [address] Orthopedics & Sports Medicine, [facility]. [place], [place] [id number] [email or web address] Social History Tobacco Use Types Packs/Day Years [...] on filedocumented in this encounter Care Teams Production Supervisor Trainee Relationship Specialty Start Date End Date Eliel Krishnan MD PCP - General 05/20/13 04/27/23 Wendi Dixon MD [address] [place] [address] [address] [place] [address] [email or web address] PCP - General Internal Medicine 04/28/23 documented as of this encounter Additional Source Comments The information contained in this document represents components of the legal health record. It is not the complete legal health record.[facility]
--- OUTSIDE RECORDS SUMMARY | 2025-03-01 18:08 | XMS_ITS | Clinical Summary ---
Author Organization [facility] Address [address] [facility] [address] [place] [address] Phone Care Team Providers Care Hat Cone Inspector Name Role Phone Wendi Dixon MD Primary Care Provider [phone] Allergies Active Allergy Reactions Criticality Noted Date [...] this topic Medical Devices Implanted Type Area Railroad Baggage Porter Device Identifier Shelf Expiration Date Model / Serial / Lot Aequalis Perform Glenoid Cortiloc M35 Shoulder 02 Nc - [id number] Implanted:Qty: 1 on 07/30/2017 by Dylan Whitley DO at [facility] Left: Shoulder [employer] 04/03/2021 [id number] / [id number] / Cement Bone 40gr [place] [employer] - [id number] Implanted:Qty: 1 on 07/30/2017 by Dylan Whitley DO at [facility] Left: Shoulder [employer] 09/24/2018 [id number] / / [id number] Ascend Flex Standard Ptc Humeral Stem Shoulder 14 - [id number] Implanted:Qty: 1 on 07/30/2017 by Dylan Whitley DO at [facility] Left: Shoulder [employer] 09/09/2021 [id number] / [id number] / [id number] High Offset Ascend Flex Stb Humeral Head Onc 22 - [id number] Implanted:Qty: 1 on 07/30/2017 by Dylan Whitley DO at [facility] Left: Shoulder [employer] 02/09/2022 [id number] / [id number] / Insurance MEDICARE HMO REPLACEMENT [place] MED[place] HMO REPLACEMENT MEDICARE HMO REPLACEMENT MEDICARE HMO REPLACEMENT [place] MEDICARE HMO REPLACEMENT MEDICARE HMO REPLACEMENT [place] MEDICARE HMO REPLACEMENT [place] MEDICARE HMO REPLACEMENT Advance Directives For more information, please contact: [phone] (9AM - 5PM [place], Thursday-Thursday) * Full Code (Presumed) (Latest Code Status on File) Date Activated Date Inactivated Comments 07/30/2017 1:31 PM 08/01/2017 3:39 PM * Full Code (Presumed) Date Activated Date Inactivated Comments 07/30/2017 6:17 AM 07/30/2017 1:31 PM Healthcare Agents on File Name Relationship Healthcare Agent [facility] p Communication Stacey Lobo Friend .Primary Healt h Care Agent (Proxy form on file) Care Teams Hat Cone Inspector Relationship Specialty Start Date End Date Wendi Dixon MD [address] [place] [address] [email or web address] PCP - General Internal Medicine 04/28/23 Additional Source Comments The information contained in this document represents components of the legal health record. It is not the complete legal health record.[facility]
== END 2025-03-01 15:44 | disposition home or self-care (01) ==
LOC: HO.HPODS 15:06
PROVIDERS: Visit Provider Student in an Organized Health Care Education/Training Program
DX: M72.2 Plantar fascial fibromatosis (principal); L03.031 Cellulitis of right toe; M20.41 Other hammer toe(s) (acquired), right foot; M79.89 Other specified soft tissue disorders
CPT/HCPCS: 99213

== ENCOUNTER → 2025-03-01 15:06 | Outpatient (BNVA) | payer MEDICARE, SELFPAY | PROVIDERS: Visit Provider Student in an Organized Health Care Education/Training Program | DX: M72.2 Plantar fascial fibromatosis (principal); L03.031 Cellulitis of right toe; M20.41 Other hammer toe(s) (acquired), right foot; M79.89 Other specified soft tissue disorders | CPT/HCPCS: 99212 ==